=== PATIENT | female | born 1970 | race American Indian/Alaskan Native ===

== ENCOUNTER 2019-06-28 17:49 | Inpatient (IN) ==
[2019-06-28] MEDS ORDERED: IOPAMIDOL 100 ML BOTTLE IV ONE (17:50)
--- NOTE | 2019-06-28 18:02 | Emergency Department Note ---
Skin/Abscess/FB HPI - General Chief complaint: Skin/Abscess/Foreign Body Stated complaint: L foot infection. Time Seen by Provider: 06/28/19 18:01 Source: patient Mode of arrival: ambulatory Limitations: no limitations - History of Present Illness HPI Narrative: T9-year-old female of origin, history of type 2 diabetes mellitus not on insulin and not taking her metformin over the last couple weeks, history of a left great toe amputation related to infection approximately 1 year ago at [facility], apparently developed increasing pain and swelling of the whole of the dorsum of the left foot over the last 3 weeks associated w ith increased pain. Patient scared of going back to hospital so apparently did not seek help until tonight. She has had no focal neurologic deficits high fever chills chest pain shortness of breath abdominal pain or GI symptoms. She is noted some drainage now over the left fourth toe. Is been no history of recent trauma. She came to the emergency department via private vehicle for evaluation. - Related Data Allergies Allergy/AdvReac Type Severity Reaction Status Date / Time No Known Drug Allergies Allergy Verified 06/28/19 17:50 Review of Systems All systems ED: reviewed and negative except as stated. Constitutional: Reports: as per HPI Past Medical History - Past Medical History [facility] Narrative: We have no records of her here. There is no documented history of coronary disease COPD or cancer. - Social History smoking status: Current every day smoker Physical Exam Tearful uncomfortable adult female complaining bitterly of left foot pain. GCS of 15. General physical examinations unremarkable. The main physical finding is erythema without necrosis over the whole the dorsum of the left foot with swelling and severe tenderness and some drainage over the left fourth toe dorsal dorsal aspect. The swelling and erythema does not extend above the ankle. Basic neurovascular examination is still intact. Limitations: no limitations General appearance: alert Head: normocephalic Eye: Present: normal appearance, PERRL, EOMI ENT: Present: normal exam Neck: Present: normal inspection Chest: Present: normal inspection Respiratory: Present: normal lung sounds bilaterally Cardiovascular: Present: regular rate, normal rhythm Abdominal: Present: soft, normal bowel sounds. Absent: distention, tenderness, guarding, rebound Rectal: Present: deferred Extremities: Present: full ROM, tenderness, other (Per earlier portion of the note). Absent: normal inspection, normal capillary refill, pedal edema Neurological: Present: alert, oriented X3 Psychiatric: Present: anxious Skin: Present: warm, dry (Area of the cellulitis of the left foot is warm to hot.) Course Vital Signs Temperature 99.5 F H 06/28/19 17:50 Pulse Rate 123 H 06/28/19 17:50 Respiratory Rate 20 06/28/19 17:50 Pulse Oximetry (%) 98 06/28/19 17:50 Temperature 99.5 F H 06/28/19 17:50 Pulse Rate 102 H 06/28/19 20:46 Respiratory Rate 20 06/28/19 17:50 Blood Pressure 151/99 06/28/19 20:46 Pulse Oximetry (%) 100 06/28/19 20:46 Skin/Abscess/Foreign Body - MDM Narrative Medical decision making narrative: Likely a severe left foot cellulitis. Patient is given pain medication hypersaline 4.5 g with 1 g of vancomycin IV. Clearly for admission and observation. 9 PM: Patient feeling better after initial fluids and above antibiotic. She does tell me that indeed she had some minor symptoms of urinary tract infection over the last week but clearly that was in her priority. She is in much less pain after administration of the Dilaudid 1 mg IV. She tells me she would rather be admitted to [facility] if possible as opposed to [facility] where she had had her amputation. We will discuss her admission with hospitalist Dr. Lainez. At some point imaging, best a CT scan will be appropriate of her leg but I do not think it is an emergent study at this time.There is no live most likely the cellulitis sta rted from the ulcer at the dorsum of her left fourth toe. [place] this patient with Dr. Baker who agreed to assume care in the interim and arrange for hospitalization admission. - Lab Data Lab results reviewed: Yes I reviewed the patient's lab results. Lab results narrative: Labs are fairly benign. There is no leukocytosis hemoglobin is adequate electrolytes are normal bicarbonate is borderline low at 18 and lactate is normal. Urinalysis does unexpectedly show possible UTI however patient's antibiotic therapy should cover this possibie There is no lab criteria consistent with DKA. She is spilling a bit of glucose in the urine and her blood sugar is high at 370 Result diagrams: 06/28/19 18:17 06/28/19 18:17 Lab Results 06/28/19 06/28/19 06/28/19 Range/Units 18:17 18:17 18:17 WBC 9.6 (4.5-11.0) K/mcL RBC 4.52 (4.00-5.20) M/mcL Hgb 13.4 (12.0-15.0) g/dL Hct 39.9 (36.0-48.0) % MCV 88.3 (80.0-100.0) fL MCH 29.6 (26.0-34.0) pg MCHC 33.5 (31.0-36.0) g/dL RDW 12.3 (11.5-14.5) % Plt Count 523 H (140-440) K/mcL MPV 7.0 L (7.4-10.4) fL Total Counted 100 Seg Neutrophils % 67 (38-78) % Band Neutrophils % 4 (0-10) % Lymphocytes % 25 (15-49) % Monocytes % (Manual) 3 (1-12) % Eosinophils % (Manual) 1 (0-7) % Platelet Estimate Increased (NORMAL) RBC Morphology Normal (NORMAL) VBG Lactic Acid TNP Sodium 130 L (133-145) mmol/L Potassium 3.8 (3.3-5.1) mmol/L Chloride 92 L (96-108) mmol/L Carbon Dioxide 20 L (22-30) mmol/L Anion Gap 18.0 H (8-16) BUN 6 (6-20) mg/dl Creatinine 0.5 L (0.6-1.1) mg/dl GFR Calculation 114 Glucose 370 H (70-105) mg/dL Calcium 9.2 (8.6-10.4) mg/dl Total Bilirubin 0.5 (0.0-1.0) mg/dL AST 11 (0-37) U/l ALT 11 (0-40) U/l Alkaline Phosphatase 112 (39-117) U/L Total Protein 8.5 H (5.9-8.4) gm/dL Albumin 3.9 (3.2-5.2) gm/dL Globulin 4.6 H (2.2-3.7) gm/dL Albumin/Globulin Ratio 0.8 L (1.0-2.3) Urine Color Urine Appearance Urine pH (5.0-9.0) Ur Specific [place] (1.000-1.035) Urine Protein (NEG) mg/dL Urine Glucose (UA) (NEG) mg/dL Urine Ketones (NEG) mg/dL Urine Occult Blood (<0.03) mg/dL Urine Nitrate (NEG) Urine Bilirubin (NEG) mg/dL Urine Urobilinogen (NEG) mg/dL Ur Leukocyte Esterase (NEG) /uL Urine RBC (0-1) /hpf Urine WBC (0-4) /hpf Ur Squamous Epith Cells (0-4) /hpf Urine Bacteria (0) /hpf Hyaline Casts (0-2) /lpf Urine Mucus (0) /hpf Ur Culture Indicated? 06/28/19 06/28/19 Range/Units 19:14 19:28 WBC (4.5-11.0) K/mcL RBC (4.00-5.20) M/mcL Hgb (12.0-15.0) g/dL Hct (36.0-48.0) % MCV (80.0-100.0) fL MCH (26.0-34.0) pg MCHC (31.0-36.0) g/dL RDW (11.5-14.5) % Plt Count (140-440) K/mcL MPV (7.4-10.4) fL Total Counted Seg Neutrophils % (38-78) % Band Neutrophils % (0-10) % Lymphocytes % (15-49) % Monocytes % (Manual) (1-12) % Eosinophils % (Manual) (0-7) % Platelet Estimate (NORMAL) RBC Morphology (NORMAL) VBG Lactic Acid 1.3 Sodium (133-145) mmol/L Potassium (3.3-5.1) mmol/L Chloride (96-108) mmol/L Carbon Dioxide (22-30) mmol/L Anion Gap (8-16) BUN (6-20) mg/dl Creatinine (0.6-1.1) mg/dl GFR Calculation Glucose (70-105) mg/dL Calcium (8.6-10.4) mg/dl Total Bilirubin (0.0-1.0) mg/dL AST (0-37) U/l ALT (0-40) U/l Alkaline Phosphatase (39-117) U/L Total Protein (5.9-8.4) gm/dL Albumin (3.2-5.2) gm/dL Globulin (2.2-3.7) gm/dL Albumin/Globulin Ratio (1.0-2.3) Urine Color Yellow Urine Appearance Cloudy Urine pH 6.0 (5.0-9.0) Ur Specific [place] 1.021 (1.000-1.035) Urine Protein Neg (NEG) mg/dL Urine Glucose (UA) >=500 A (NEG) mg/dL Urine Ketones 5/tr A (NEG) mg/dL Urine Occult Blood 0.03 A (<0.03) mg/dL Urine Nitrate Pos A (NEG) Urine Bilirubin Neg (NEG) mg/dL Urine Urobilinogen Neg (NEG) mg/dL Ur Leukocyte Esterase 250 A (NEG) /uL Urine RBC 6 H (0-1) /hpf Urine WBC 52 H (0-4) /hpf Ur Squamous Epith Cells 45 H (0-4) /hpf Urine Bacteria Mod A (0) /hpf Hyaline Casts 12 H (0-2) /lpf Urine Mucus Mod (0) /hpf Ur Culture Indicated? No Disposition Pt seen by SENIOR DATABASE ENGINEER/PA only: No Disposition: Still a Patient Condition: Good Referrals: Glen Parr ARNP [Primary Care Provider] -
[2019-06-28] MEDS ORDERED: PIPERACILLIN SODIUM/TAZOBACTAM 4.5 GM in DEXTROSE 5% IN WATER 50 ML IV ONE (18:10)
[2019-06-28] MEDS ORDERED: VANCOMYCIN 1,000 MG in 0.9 % SODIUM CHLORIDE 250 ML IV ONE (18:11)
[2019-06-28] MEDS ORDERED: HYDROmorphone 2 MG/ML VIAL IV SCH (18:45)
[2019-06-28 19:06] LABS: Hematocrit 39.9 % (36.0-48.0); Hemoglobin 13.4 g/dL (12.0-15.0); Mean Cell Volume 88.3 fL (80.0-100.0); Mean Corpuscular HGB Conc 33.5 g/dL (31.0-36.0); Platelet Count 523 K/mcL (140-440); RBC 4.52 M/mcL (4.00-5.20); Red Cell Distribution Width 12.3 % (11.5-14.5); WBC 9.6 K/mcL (4.5-11.0)
[2019-06-28 19:29] LABS: ALT/SGPT 11 U/l (0-40); AST/SGOT 11 U/l (0-37); Albumin 3.9 gm/dL (3.2-5.2); Albumin/Globulin Ratio 0.8 (1.0-2.3); Alkaline Phosphatase 112 U/L (39-117); Bilirubin,Total 0.5 mg/dL (0.0-1.0); Blood Urea Nitrogen 6 mg/dl (6-20); Calcium 9.2 mg/dl (8.6-10.4); Carbon Dioxide 20 mmol/L (22-30); Globulin 4.6 gm/dL (2.2-3.7); Glomerular Filtration Rate 114; Glucose 370 mg/dL (70-105)
[2019-06-28 19:34] LABS: Chloride 92 mmol/L (96-108)
[2019-06-28 19:50] LABS: Band Neutrophils % 4 % (0-10); Eosinophils % (Manual) 1 % (0-7); Lymphocytes % 25 % (15-49); Monocytes % (Manual) 3 % (1-12); Platelet Estimate INCREASED (NORMAL); RBC Morphology NORMAL (NORMAL); Segmented Neutrophils % 67 % (38-78)
[2019-06-28 20:03] LABS: Appearance,Urine CLOUDY; Bacteria,Urine MOD /hpf (0); Bilirubin,Urine NEG (NEG); Color,Urine YELLOW; Culture Indicated,Urine NO; Glucose,Urine (UA) >=500 mg/dL (NEG); Ketones,Urine 5/TR mg/dL (NEG); Leukocyte Esterase,Urine 250 /uL (NEG); Mucus,Urine MOD /hpf (0); Nitrate,Urine POS (NEG); Protein,Urine NEG (NEG); Specific Gravity,Urine 1.021 (1.000-1.035); Urine Blood 0.03 mg/dL (<0.03); Urine Hyaline Cast 12 /lpf (0-2); Urine RBC 6 /hpf (0-1); Urine Squamous Epithelial Cell 45 /hpf (0-4); Urine WBC 52 /hpf (0-4); Urobilinogen,Urine NEG (NEG)
[2019-06-28] MEDS ORDERED: INSULIN REGULAR, HUMAN 1 UNIT/0.01 ML UNIT IV ONE (21:24)
--- NOTE | 2019-06-28 21:27 | Emergency Department Note ---
General Adult HPI - General Chief complaint: Skin/Abscess/Foreign Body Stated complaint: L foot infection. Time Seen by Provider: 06/28/19 18:01 Source: patient Mode of arrival: ambulatory Limitations: no limitations - History of Present Illness HPI Narrative: 49-year-old female with a history of fourth left toe infection that is getting worse. Patient is checked out to me by Dr. Barragan at shift change. I reviewed his note - Related Data Allergies Allergy/AdvReac Type Severity Reaction Status Date / Time No Known Drug Allergies Allergy Verified 06/28/19 17:50 Review of Systems Constitutional: Reports: as per HPI Past Medical History - Social History smoking status: Current every day smoker Physical Exam Left foot is erythematous over the entire forefoot and she is draining pus from several wounds at the fourth digit. This digit is deformed and very edematous Limitations: no limitations General appearance: alert Course Vital Signs Temperature 99.5 F H 06/28/19 17:50 Pulse Rate 123 H 06/28/19 17:50 Respiratory Rate 20 06/28/19 17:50 Pulse Oximetry (%) 98 06/28/19 17:50 Temperature 99.5 F H 06/28/19 17:50 Pulse Rate 100 H 06/28/19 22:30 Respiratory Rate 20 06/28/19 17:50 Blood Pressure 127/75 06/28/19 22:30 Pulse Oximetry (%) 100 06/28/19 22:30 Medical Decision Making - Lab Data Lab results reviewed: Yes I reviewed the patient's lab results. Result diagrams: 06/28/19 18:17 06/28/19 18:17 Lab Results 06/28/19 06/28/19 06/28/19 Range/Units 18:17 18:17 18:17 WBC 9.6 (4.5-11.0) K/mcL RBC 4.52 (4.00-5.20) M/mcL Hgb 13.4 (12.0-15.0) g/dL Hct 39.9 (36.0-48.0) % MCV 88.3 (80.0-100.0) fL MCH 29.6 (26.0-34.0) pg MCHC 33.5 (31.0-36.0) g/dL RDW 12.3 (11.5-14.5) % Plt Count 523 H (140-440) K/mcL MPV 7.0 L (7.4-10.4) fL Total Counted 100 Seg Neutrophils % 67 (38-78) % Band Neutrophils % 4 (0-10) % Lymphocytes % 25 (15-49) % Monocytes % (Manual) 3 (1-12) % Eosinophils % (Manual) 1 (0-7) % Platelet Estimate Increased (NORMAL) RBC Morphology Normal (NORMAL) VBG Lactic Acid TNP Sodium 130 L (133-145) mmol/L Potassium 3.8 (3.3-5.1) mmol/L Chloride 92 L (96-108) mmol/L Carbon Dioxide 20 L (22-30) mmol/L Anion Gap 18.0 H (8-16) BUN 6 (6-20) mg/dl Creatinine 0.5 L (0.6-1.1) mg/dl GFR Calculation 114 Glucose 370 H (70-105) mg/dL Calcium 9.2 (8.6-10.4) mg/dl Total Bilirubin 0.5 (0.0-1.0) mg/dL AST 11 (0-37) U/l ALT 11 (0-40) U/l Alkaline Phosphatase 112 (39-117) U/L Total Protein 8.5 H (5.9-8.4) gm/dL Albumin 3.9 (3.2-5.2) gm/dL Globulin 4.6 H (2.2-3.7) gm/dL Albumin/Globulin Ratio 0.8 L (1.0-2.3) Procalcitonin (<0.10) ng/mL Urine Color Urine Appearance Urine pH (5.0-9.0) Ur Specific [place] (1.000-1.035) Urine Protein (NEG) mg/dL Urine Glucose (UA) (NEG) mg/dL Urine Ketones (NEG) mg/dL Urine Occult Blood (<0.03) mg/dL Urine Nitrate (NEG) Urine Bilirubin (NEG) mg/dL Urine Urobilinogen (NEG) mg/dL Ur Leukocyte Esterase (NEG) /uL Urine RBC (0-1) /hpf Urine WBC (0-4) /hpf Ur Squamous Epith Cells (0-4) /hpf Urine Bacteria (0) /hpf Hyaline Casts (0-2) /lpf Urine Mucus (0) /hpf Ur Culture Indicated? 06/28/19 06/28/19 06/28/19 Range/Units 18:17 19:14 19:28 WBC (4.5-11.0) K/mcL RBC (4.00-5.20) M/mcL Hgb (12.0-15.0) g/dL Hct (36.0-48.0) % MCV (80.0-100.0) fL MCH (26.0-34.0) pg MCHC (31.0-36.0) g/dL RDW (11.5-14.5) % Plt Count (140-440) K/mcL MPV (7.4-10.4) fL Total Counted Seg Neutrophils % (38-78) % Band Neutrophils % (0-10) % Lymphocytes % (15-49) % Monocytes % (Manual) (1-12) % Eosinophils % (Manual) (0-7) % Platelet Estimate (NORMAL) RBC Morphology (NORMAL) VBG Lactic Acid 1.3 Sodium (133-145) mmol/L Potassium (3.3-5.1) mmol/L Chloride (96-108) mmol/L Carbon Dioxide (22-30) mmol/L Anion Gap (8-16) BUN (6-20) mg/dl Creatinine (0.6-1.1) mg/dl GFR Calculation Glucose (70-105) mg/dL Calcium (8.6-10.4) mg/dl Total Bilirubin (0.0-1.0) mg/dL AST (0-37) U/l ALT (0-40) U/l Alkaline Phosphatase (39-117) U/L Total Protein (5.9-8.4) gm/dL Albumin (3.2-5.2) gm/dL Globulin (2.2-3.7) gm/dL Albumin/Globulin Ratio (1.0-2.3) Procalcitonin < 0.05 (<0.10) ng/mL Urine Color Yellow Urine Appearance Cloudy Urine pH 6.0 (5.0-9.0) Ur Specific [place] 1.021 (1.000-1.035) Urine Protein Neg (NEG) mg/dL Urine Glucose (UA) >=500 A (NEG) mg/dL Urine Ketones 5/tr A (NEG) mg/dL Urine Occult Blood 0.03 A (<0.03) mg/dL Urine Nitrate Pos A (NEG) Urine Bilirubin Neg (NEG) mg/dL Urine Urobilinogen Neg (NEG) mg/dL Ur Leukocyte Esterase 250 A (NEG) /uL Urine RBC 6 H (0-1) /hpf Urine WBC 52 H (0-4) /hpf Ur Squamous Epith Cells 45 H (0-4) /hpf Urine Bacteria Mod A (0) /hpf Hyaline Casts 12 H (0-2) /lpf Urine Mucus Mod (0) /hpf Ur Culture Indicated? No - Radiology Data Radiology results reviewed: Yes I reviewed the patient's radiology results. CT scan of the foot on the left shows likely septic arthritis of the left fourth metatarsal phalangeal joint with flanking osteomyelitis possible pathologic fracture and an abscess-see [place] read Disposition Pt seen by ANALYTICAL DATA MINER/PA only: No Clinical Impression: Septic arthritis of interphalangeal joint of toe of left foot Abscess of skin or subcutaneous tissue Qualifiers: Site of cutaneous abscess: extremity Site of cutaneous abscess of extremity: foot Laterality: left Qualified Code(s): L02.612 - Cutaneous abscess of left foot Osteomyelitis Qualifiers: Osteomyelitis type: unspecified type Osteomyelitis location: foot Laterality: left Qualified Code(s): M86.9 - Osteomyelitis, unspecified Uncontrolled diabetes mellitus Qualifiers: Diabetes mellitus type: type 2 Glycemic state: with hyperglycemia Qualified Code(s): E11.65 - Type 2 diabetes mellitus with hyperglycemia Summary: I added some further laboratory and CT scan of the left foot. Start IV insulin 10 units. I initially tried to discuss the case with Dr. Agustin Last, retail service representative but he was not available. I discussed findings of the CT scan with Dr. Glaser, orthopedist song writer. He agreed to see the patient in the morning-we will continue antibiotics and admit to the hospitalist. I discussed the case with the hospitalist, Dr. Lainez who agreed to accept the patient Disposition: Xfer As Inpt ([facility]) Condition: Fair Referrals: Glen Parr ARNP [Primary Care Provider] -
[2019-06-28] MEDS ORDERED: 0.9 % SODIUM CHLORIDE 1,000 ML IV ONE (23:08)
--- NOTE | 2019-06-28 23:20 | Internal Med History&Physical ---
Medical - H&P: [facility] Patient information: Note initiated : 06/28/19 at 11:20 pm Service Date, if different from initiated Date: [] Patient: Enma Leonard 49 y/o F admitted on for Left 4th digit infection. Chief Complaint: Left foot pain, swelling, erythema History of present illness: Ms. Leonard is a 49 year old F with history of type 2 diabetes and neuropathy, history of left great toe amputation for osteomyelitis who presents to the emergency department with worsening swelling, erythema and pain of her left f oot. Patient states that about 3 weeks ago she developed a blister on the lateral aspect of her fourth left toe. It broke, she rapidly developed evidence of infection, erythema, tenderness. She avoided seeking medical attention, instead becoming more sedentary because of inability to ambulate. Pain continued to increase over the last few weeks. Today she bumped her foot on an object with worsening pain. That combined with the insistence of her sister led her to seek care in the emergency department. Patient has had low-grade fever into the 99 degree range. She has occasional chills. She has had sporadic nausea and vomiting since her foot became red and painful. Glucoses have generally been running in the 1 20-220 range, though were over 300 at presentation today. She has pain in the foot as noted. There is erythema onto the dorsum of the foot along with edema up to the ankle. In the emergency department, she had obviously red and edematous foot with open wound on the plantar aspect of the fourth toe on the left. White count was not elevated, lactate was normal and she had mild electrolyte abnormalities. She was cultured, received antibiotics, subsequently had CT of the foot which shows worrisome changes for osteomyelitis along with an abscess and possible fracture. Orthopedics has been contacted and will see the patient in the morning. She is being admitted for further treatment of diabetic foot wound with cellulitis and abscess. Medications: Metformin and gabapentin, unknown doses All systems: reviewed and no additional remarkable complaints except as stated Medical - H&P: PMH Medical history: Type 2 diabetes mellitus Diabetic neuropathy Osteomyelitis of left great toe, status post amputation 1 year ago Surgical history: Amputation of left great toe, late 2018 at [facility] Pertinent family history: Significant history of diabetes in multiple family members. Social history: Patient smokes 1 to 2 cigarettes a month. She does not drink alcohol. She uses marijuana. Medical - H&P: Meds Allergies Allergy/AdvReac Type Severity Reaction Status Date / Time No Known Drug Allergies Allergy Verified 06/28/19 17:50 Medical - H&P: Exam - Constitutional Vitals: Temp Pulse Resp BP Pulse Ox 99.5 F H 100 H 20 127/75 100 06/28/19 17:50 06/28/19 22:30 06/28/19 17:50 06/28/19 22:30 06/28/19 22:30 Exam: GENERAL: Alert, oriented, distressed about the status of her foot. HEENT: Atraumatic. Pupils equal, conjunctiva clear, no scleral icterus. Hearing grossly intact. Oropharynx with moist mucous membranes. NECK: Supple without meningismus RESPIRATORY: Breath sounds clear bilaterally without wheezes or rhonchi. Respiratory effort is unlabored. CARDIOVASCULAR: Regular rate and rhythm, no murmur gallop or rub. No peripheral edema. Carotid pulses 2+ without bruit. GI: Abdomen soft, nontender, no guarding or rebound. Bowel sounds are present. MUSCULOSKELETAL: Left foot is with significant edema from the forefoot to the ankle. There is dusky erythema over the dorsum of the foot. The left fourth toe has worsened swelling, some open drainage on top, approximately 3 cm transverse opening with exposed fat at the base of the fourth toe on the dorsum. Dorsalis pedis pulse is 2+. SKIN: Abrasion along the left eyebrow margin, otherwise intact, warm, dry. NEUROLOGIC: Cranial nerves II through XII grossly intact. Muscle mass normal. Strength appears intact in the upper and lower extremities. Sensation intact to light touch bilaterally. PSYCHIATRIC: Alert, oriented x3, mood and affect congruent with situation. Medical - H&P: Reslt - Labs CBC & Chem 7: 06/28/19 18:17 06/28/19 18:17 Labs: Short CBC 06/28/19 Range/Units 18:17 WBC 9.6 (4.5-11.0) K/mcL Hgb 13.4 (12.0-15.0) g/dL Hct 39.9 (36.0-48.0) % Plt Count 523 H (140-440) K/mcL BMP 06/28/19 18:17 Sodium 130 L Potassium 3.8 Chloride 92 L Carbon Dioxide 20 L BUN 6 Creatinine 0.5 L Glucose 370 H Calcium 9.2 Liver Function 06/28/19 Range/Units 18:17 Total Bilirubin 0.5 (0.0-1.0) mg/dL AST 11 (0-37) U/l ALT 11 (0-40) U/l Alkaline Phosphatase 112 (39-117) U/L Albumin 3.9 (3.2-5.2) gm/dL Urine 06/28/19 Range/Units 19:14 Urine Color Yellow Urine Appearance Cloudy Urine pH 6.0 (5.0-9.0) Ur Specific [place] 1.021 (1.000-1.035) Urine Protein Neg (NEG) mg/dL Urine Glucose (UA) >=500 A (NEG) mg/dL - Impressions CT of the left foot, images reviewed Impression: Findings favored for septic arthritis of left fourth MTP joint with flanking osteomyelitis, probable pathologic fracture and adjacent linear abscess. Medical - H&P: A/P - Narrative A/P Narrative: 49-year-old with type 2 diabetes presenting with left foot infection. Diabetic foot infection with cellulitis and ulcer. Apparently started as a blister on the lateral aspect of the left fourth toe. Now with evidence of bone infection and abscess. Surrounding erythema and edema consistent with cellulitis. Has been ongoing for about 3 weeks. Certainly at risk for gram- positive as well as gram-negative infection with her diabetes. Likely will require surgical debridement, possible amputation. Good palpable dorsalis pedis pulse on that foot. Inpatient admission Continue vancomycin and Zosyn Follow-up cultures obtained in the ED Orthopedic consultation, called by the ED N.p.o. in anticipation of surgery tomorrow SCDs, holding enoxaparin until after surgery Type 2 diabetes. Takes metformin and gabapentin at home. Check hemoglobin A1c Sliding scale insulin N.p.o. for now, as controlled carbohydrate diet when taking oral CODE STATUS: Full code
[2019-06-28] MEDS ORDERED: HYDROmorphone 2 MG/ML VIAL IV PRN (23:43)
[2019-06-29] MEDS ORDERED: DEXTROSE 50% 50 ML VIAL IV PRN (00:48)
[2019-06-29] MEDS ORDERED: DEXTROSE 31 GM ORAL.SUSP PO PRN (00:48)
[2019-06-29] MEDS ORDERED: 0.9 % SODIUM CHLORIDE 1,000 ML IV SCH (00:48)
[2019-06-29] MEDS ORDERED: VANCOMYCIN PER PHARMACY IV ONE (00:48)
[2019-06-29] MEDS ORDERED: ONDANSETRON 4 MG/2 ML VIAL IV PRN (00:48)
[2019-06-29] MEDS ORDERED: ACETAMINOPHEN 325 MG TABLET PO PRN (00:48)
[2019-06-29 01:25] LABS: Hemoglobin A1C 10.7 % HGB (4.0-6.0)
[2019-06-29] MEDS: PIPERACILLIN SODIUM/TAZOBACTAM 3.375 GM in DEXTROSE 5% IN WATER 50 ML IV SCH ×3 (01:28→11:17)
[2019-06-29] MEDS ORDERED: HYDROcodone/APAP 5/325MG TABLET PO ONE (01:42)
[2019-06-29] MEDS: HYDROcodone/APAP 5/325MG TABLET PO PRN ×5 (01:44→23:58)
[2019-06-29] MEDS: 0.9 % SODIUM CHLORIDE 10 ML SYRINGE IV SCH ×3 (04:05→20:21)
--- NOTE | 2019-06-29 04:13 | Cat Scan Report ---
CLINICAL INFORMATION: left 4th toe infection COMPARISON: None. TECHNIQUE: 0.625 helical slices were obtained through the left foot and ankle. Following reconstruction, 2.5 axial, sagittal and coronal reformatted images were processed and reviewed in bone and soft tissue windows. FINDINGS: First ray amputation at the MTP level shows typical postoperative appearance. In the fourth ray, there is osteolytic destruction of the metatarsal head and neck and the most of the proximal and middle phalanges compatible with osteomyelitis. There is associated septic arthritis in the fourth MTP and first PIP There is a 4 x 1 cm abscess in the adjacent deep plantar soft tissues. 2-3 smaller abscesses less than 1 cm more proximally in the deep plantar soft tissues as well. IMPRESSION: 1. Severe osteomyelitis destruction of the fourth metatarsal head and neck and most of the fourth proximal and middle phalanges with septic arthritis the fourth MTP and PIP. There is a 4 x 1 cm abscess in the adjacent deep plantar soft tissues. There are 2-3 smaller (1 cm) abscesses or proximally in the plantar soft tissues. 2. First ray amputation at the MTP level - typical postoperative appearance Interpreted and Authenticated by: Kings Guerra 06/29/19
[2019-06-29] MEDS ORDERED: LACTATED RINGERS 1,000 ML IV ONE ×2 (05:49→12:15)
[2019-06-29] MEDS ORDERED: VANCOMYCIN PER PHARMACY IV SCH (06:15)
[2019-06-29 06:28] LABS: Basophils # (Auto) 0 K/mcL (0.0-0.3); Basophils % (Auto) 0.3 % (0.0-2.0); Eosinophils # (Auto) 0.1 K/mcL (0.0-0.7); Eosinophils % (Auto) 1.6 % (0.0-7.0); Granulocytes % (Auto) 53.8 % (38.0-78.0); Hemoglobin 11.6 g/dL (12.0-15.0); Lymphocytes # (Auto) 2.9 K/mcL (1.5-4.8); Lymphocytes % (Auto) 35.7 % (15.5-49.0); Mean Cell Volume 90.2 fL (80.0-100.0); Mean Corpuscular HGB Conc 33.1 g/dL (31.0-36.0); Mean Platelet Volume 6.9 fL (7.4-10.4); Monocytes # (Auto) 0.7 K/mcL (0.1-0.9); Monocytes % (Auto) 8.6 % (1.0-12.0); Platelet Count 420 K/mcL (140-440); RBC 3.88 M/mcL (4.00-5.20); Red Cell Distribution Width 12.3 % (11.5-14.5); WBC 8.2 K/mcL (4.5-11.0)
[2019-06-29] MEDS: 0.9 % SODIUM CHLORIDE 1,000 ML IV SCH ×3 (06:59→18:47)
[2019-06-29 07:08] LABS: ALT/SGPT 8 U/l (0-40); AST/SGOT 18 U/l (0-37); Albumin/Globulin Ratio 0.8 (1.0-2.3); Alkaline Phosphatase 81 U/L (39-117); Bilirubin,Direct < 0.2 mg/dL (0.0-0.3); Bilirubin,Total 0.4 mg/dL (0.0-1.0); Blood Urea Nitrogen 10 mg/dl (6-20); Calcium 8.6 mg/dl (8.6-10.4); Carbon Dioxide 23 mmol/L (22-30); Chloride 99 mmol/L (96-108); Globulin 3.8 gm/dL (2.2-3.7); Glomerular Filtration Rate 114; Glucose 230 mg/dL (70-105); Lactate Dehydrogenase 279 U/L (94-250); Phosphorous 4.3 mg/dL (2.7-4.5); Triglycerides 131 mg/dl (<150); Uric Acid 2.5 mg/dL (2.5-8.0)
[2019-06-29] MEDS: HYDROmorphone 2 MG/ML VIAL IV PRN ×3 (07:40→18:47)
[2019-06-29] MEDS: INSULIN LISPRO 1 UNIT/0.01 ML UNIT SQ SCH ×4 (07:41→19:18)
[2019-06-29] MEDS: VANCOMYCIN 1,500 MG in 0.9 % SODIUM CHLORIDE 500 ML IV SCH ×2 (08:58→20:20)
[2019-06-29] MEDS: DOCUSATE SODIUM 100 MG CAPSULE PO SCH ×2 (09:06→19:29)
--- NOTE | 2019-06-29 12:06 | History and Physical Report ---
DATE OF ADMISSION: 06/29/2019 CHIEF COMPLAINT: Left foot pain with swelling and erythema. HISTORY OF PRESENT ILLNESS: The patient is a 49-year-old female who presented to the emergency department last evening complaining of left foot pain, swelling and edema. She does report a history of left great toe amputation, diabetes mellitus type 2. She states her symptoms began approximately 1 month ago. She has been noticing increased swelling, erythema and drainage since. She denies any systemic symptoms such as a fever or chills. She has no other specific complaints today. PAST MEDICAL HISTORY: Significant for type 2 diabetes mellitus, diabetic neuropathy and osteomyelitis of the left great toe. PAST SURGICAL HISTORY: Amputation of left great toe in late 2018. FAMILY HISTORY: She does have significant history of diabetes with multiple family members. SOCIAL HISTORY: The patient admits to smoking one to two cigarettes per month, as well as marijuana. She denies any alcohol use or any other recreational drug use, though she does have a history of using methamphetamine. MEDICATIONS: None. ALLERGIES: She has no known drug allergies. PHYSICAL EXAMINATION: GENERAL: The patient is alert and oriented x3. She is somewhat distressed and emotional regarding her left foot. HEENT: Atraumatic. Pupils are equal, round, and reactive to light and accommodation. ENT is otherwise unremarkable. NECK: Supple, without lymphadenopathy. RESPIRATORY: Lungs are clear to auscultation bilaterally without any wheezes, rhonchi or rales. HEART: Regular rate and rhythm without murmur. ABDOMEN: Soft, nontender, nondistended. Bowel sounds are present in all 4 quadrants. MUSCULOSKELETAL: On the left foot there does appear to be significant edema diffusely, mainly over the dorsum of the foot and ankle as well as erythema. There is no significant in the fourth digit with some purulent drainage. The erythema does extend proximally to the base of her ankle. The dorsum of her fourth digit is actively draining and she does have approximately a 3 cm oblique wound over the dorsal aspect of the fourth digit. Dorsal pedis pulse is 2+, passive and active range of motion of the fourth toe is limited due to swelling and tenderness. There is diffuse tenderness to palpation throughout the dorsum of the fourth toe. LABORATORY DATA: She does not have any significant white blood cell count at this time. Hemoglobin is 13.4, hematocrit 39.94. White blood cell count is 9.6. BMP is otherwise fairly normal. UA normal. IMAGING: CT of the left foot reveals severe osteomyelitis of the fourth metatarsal head and neck as well as most of the fourth proximal and middle phalanx with septic arthritis of the fourth MTP and PIP joints. There does appear to be an abscess of the adjacent deep plantar soft tissues and proximal plantar soft tissues. There are no other acute abnormalities or fractures appreciated. IMPRESSION: A left fourth toe diabetic foot ulcer/wound with osteomyelitis at the fourth digit. PLAN: After assessing the patient and examining the diabetic foot infection and osteomyelitis of the fourth digit, I do think it is best to proceed with amputation of the left fourth toe with possible transmetatarsal amputation which will be determined by Dr. Gallegos. I did consult Dr. Gallegos and he agrees with this plan. I discussed the risks, complications, and possible limitations of surgery and the patient would like to proceed with surgery. The patient will remain ____ and be managed by the hospitalist throughout her stay. We also will manage her diabetes. The patient agrees with this plan and her questions were addressed. RSBang:justice Job ID: [id number] Doc ID: [id number] Jason De Los Santos PA-C
--- NOTE | 2019-06-29 12:07 | Infectious Disease Consult ---
History of Present Illness Patient information: Note initiated : 06/29/19 at 12:00 pm Service Date, if different from initiated Date: [] Patient: Enma Leonard 49 y/o F admitted on 06/29/19 for Left 4th digit infection. Chief Complaint: [] Consult date: 06/29/19 Requesting Physician: Leanne Baldwin Reason for Consult: Osteomyelitis of left foot and local skin-soft tissue infection Chief complaint: my foot hurts History of present illness: 49-year-old lady with past medical history of type 2 diabetes with neuropathy and left great toe amputation for osteomyelitis [in 2018] is admitted with 3- week history of worsening swelling, redness, pain and pus drainage from the left foot. Patient reports that about 3 weeks ago she developed a blister probably from a tight fitting shoe. Initially it was a small but eventually broke and developed redness, swelling and pain. Initially the symptoms were in the for efoot but later on the spread to the rest of the foot and over last few days to lower two third of the leg. She didnot notice any fever, chills. Pt didnot seek medical attention for some reason, until now when she came to ER yesterday. Her blood sugars have been in 120-200s range. In the ED, her VS were notable for low grade temp of 99.5F, HR 102, BP 151/99, satting 98% on RA. WBC was 9.6, BS 370, lactate 1.3. Pt underwent CT of left foot, blood Cx, wound CX and was started on IV Vanc and IV Zosyn. CT left foot showed "Severe osteomyelitis destruction of the fourth metatarsal head and neck and most of the fourth proximal and middle phalanges with septic arthritis the fourth MTP and PIP. There is a 4 x 1 cm abscess in the adjacent deep plantar soft tissues. There are 2-3 smaller (1 cm) abscesses or proximally in the plantar soft tissues.A MRSA nasal PCR was also sent which came back positive. At time of visit, pt was slightly uncomfortable. Confirmed above Hx. Was reaful about the prospects of having another amputation. Denied any allergies. Review of Systems All systems PM: reviewed and no additional remarkable complaints except as stated Constitutional: as per HPI Past History Past medical history: Type 2 diabetes mellitus Diabetic neuropathy Osteomyelitis of left great toe, status post amputation 1 year ago Past surgical history: Amputation of left great toe, late 2018 at [facility] Past family history: lives in [place], [place] Past social history: smokes 1-2 cigarettes every few weeks, smokes marijuana daily has been IV drug user in past, with last use of inj meth about 6-7 mnths ago. Currently denies any Inj drug use Medications and Allergies Home Medications Medication Instructions Recorded Confirmed Type Gabapentin [Neurontin] 100 mg PO Q12 06/29/19 06/29/19 History metFORMIN HCL [Metformin HCl] 1 tab PO BID 06/29/19 06/29/19 History Allergies Allergy/AdvReac Type Severity Reaction Status Date / Time No Known Drug Allergies Allergy Verified 06/28/19 17:50 Physical Examination Vital signs: Temp Pulse Resp BP Pulse Ox 36.4 C 68 16 89/53 100 06/29/19 11:21 06/29/19 11:21 06/29/19 11:21 06/29/19 11:21 06/29/19 11:21 General appearance: appears uncomfortable Eyes pulmonary: nonicteric Auscultation: bilateral: clear Cardiovascular: other (s1 s2 normal, no m/r/g) Gastrointestinal: hypoactive bowel sounds, soft, non-tender Extremities: other (has swelling of left foot and lower leg. There is marked swelling of left foot 3rd and 4th toes,with spotaneous drainage of pus. Tenderness and warmth below left knee downwards. No black disoloration. has well healed Lt great toe amputation stump) Results - Laboratory Findings CBC and BMP: 06/29/19 04:49 06/29/19 04:49 Abnormal lab findings: Abnormal Labs 06/28/19 06/28/19 06/28/19 18:17 18:17 18:17 RBC Hgb Hct Plt Count 523 H MPV 7.0 L Sodium 130 L Chloride 92 L Carbon Dioxide 20 L Anion Gap 18.0 H Creatinine 0.5 L Glucose 370 H Hemoglobin A1c 10.7 H Lactate Dehydrogenase Total Protein 8.5 H Albumin Globulin 4.6 H Albumin/Globulin Ratio 0.8 L Urine Glucose (UA) Urine Ketones Urine Occult Blood Urine Nitrate Ur Leukocyte Esterase Urine RBC Urine WBC Ur Squamous Epith Cells Urine Bacteria Hyaline Casts 06/28/19 06/29/19 06/29/19 19:14 04:49 04:49 RBC 3.88 L Hgb 11.6 L Hct 35.0 L Plt Count MPV 6.9 L Sodium Chloride Carbon Dioxide Anion Gap Creatinine 0.5 L Glucose 230 H Hemoglobin A1c Lactate Dehydrogenase 279 H Total Protein Albumin 3.0 L Globulin 3.8 H Albumin/Globulin Ratio 0.8 L Urine Glucose (UA) >=500 A Urine Ketones 5/tr A Urine Occult Blood 0.03 A Urine Nitrate Pos A Ur Leukocyte Esterase 250 A Urine RBC 6 H Urine WBC 52 H Ur Squamous Epith Cells 45 H Urine Bacteria Mod A Hyaline Casts 12 H Microbiology: Microbiology 06/28/19 19:12 Foot - Left Gram Stain - Final 06/28/19 19:12 Foot - Left Wound Culture - Preliminary Staphylococcus aureus 06/29/19 01:15 Nose MRSA (PCR) - Final MRSA PCR positive Assessment and Plan - Narrative A/P Narrative: A: 1. Left forefoot osteomyelitis with localized skin-soft tissue infection and abscess formation: preliminary Cx growing Staph aureus with sensi pending - risk factors of uncontrolled DM2, prior Hx of osteomyelitis, Hx of IV meth use in past, MRSA colonization with minor trauma - no concerns for necrotizing fascitis 2. MRSA carrier Recommendations: - agree with surgical debridement today. Send deep tissue, bone samples for GS and C/S - Stop IV Zosyn - Continue IV Vanc per pharmacy. Check trough before the 4th dose (target 10-20) - Start IV Cefazolin 2 gm q8 hrs while awaiting whether Staph aureus is MSSA or MRSA - Start MRSA decolonization with: 2% mupirocin intranasally bid x 5 days and once daily 2% CHG wipes (per hospital protocol) all over body below neck x 5 days - aggressive blood sugar control (target <180 mg/dl) - anticipate at least few weeks of antibiotics post-operatively with ID follow up. will follow Levon Valles MD Infectious diseases
[2019-06-29] MEDS: ceFAZolin 1 GM VIAL IV SCH ×2 (14:00→22:25)
[2019-06-29] MEDS ORDERED: GLYCOPYRROLATE 0.2 MG/ML VIAL IV ONE (15:54)
[2019-06-29] MEDS ORDERED: PROPOFOL 200 MG/20 ML VIAL IV ONE (15:54)
[2019-06-29] MEDS ORDERED: ONDANSETRON 4 MG/2 ML VIAL ONE (15:54)
[2019-06-29] MEDS ORDERED: LIDOCAINE HCL/PF 100 MG/5 ML SYRINGE IV ONE (15:54)
[2019-06-29] MEDS ORDERED: KETAMINE 10 MG/ML ML ONE (15:54)
[2019-06-29] MEDS ORDERED: PHENYLEPHRINE 10 MG/ML VIAL ONE (15:54)
[2019-06-29] MEDS ORDERED: MIDAZOLAM 2 MG/2 ML VIAL ONE (15:54)
[2019-06-29] MEDS ORDERED: DEXAMETHASONE 10 MG/ML VIAL ONE (15:54)
[2019-06-29] MEDS ORDERED: HYDROmorphone 2 MG/ML VIAL IV PRN (16:37)
[2019-06-29] MEDS ORDERED: NALOXONE HCL 0.4 MG/ML VIAL IV PRN (16:37)
[2019-06-29] MEDS ORDERED: FLUMAZENIL 0.1 MG/ML ML IV PRN (16:37)
[2019-06-29] MEDS ORDERED: diphenhydrAMINE 50 MG/ML VIAL IV PRN (16:37)
[2019-06-29] MEDS ORDERED: MEPERIDINE 25 MG/ML SYRINGE IV PRN (16:37)
[2019-06-29] MEDS ORDERED: METOPROLOL TARTRATE 5 MG/5 ML VIAL IV PRN (16:37)
[2019-06-29] MEDS ORDERED: ACETAMINOPHEN 1,000 MG/100 ML BOTTLE IV ONE (16:37)
[2019-06-29] MEDS ORDERED: IPRATROPIUM/ALBUTEROL 3 ML AMPUL.NEB NEB PRN (16:37)
[2019-06-29] MEDS ORDERED: ePHEDrine 50 MG/ML AMPUL IV PRN (16:37)
[2019-06-29] MEDS ORDERED: ATROPINE SULFATE 0.4 MG/ML VIAL IV PRN (16:37)
[2019-06-29] MEDS ORDERED: METHOCARBAMOL 1,000 MG/10 ML VIAL IV PRN (16:37)
[2019-06-29] MEDS ORDERED: LACTATED RINGERS 1,000 ML IV SCH (16:45)
--- NOTE | 2019-06-29 17:35 | Brief Operative Note ---
Date of procedure: 06/29/19 Pre-op diagnosis: septic left forefoot Post-op diagnosis: same Procedure: l transmet amputation Grafts/Implants: No Anesthesia: RAMANDEEP Surgeon: Kalyan Gallegos Plumber Cub: Wicho Walden Estimated blood loss (cc): 100 Tourniquet Time (Minutes): 20 Specimens Removed/Pathology: none sent Condition: stable Disposition: PACU
[2019-06-29] MEDS: fentaNYL 100 MCG/2 ML VIAL IV PRN ×3 (17:50→18:20)
[2019-06-29] MEDS ORDERED: LORazepam 2 MG/ML VIAL IV ONE (17:58)
[2019-06-29] MEDS ORDERED: LORazepam 2 MG/ML VIAL ONE (17:59)
--- NOTE | 2019-06-29 18:16 | XRay Report ---
CLINICAL INFORMATION: postop COMPARISON: Left foot CT 06/28/2019 FINDINGS: Postsurgical amputation metatarsal base level are appreciated. Stumps appear unremarkable. Mild stump soft tissue swelling seen as expected. Joint spaces of the hindfoot and midfoot are normal. IMPRESSION: Amputation changes - metatarsal bases. Typical postoperative appearance Interpreted and Authenticated by: Kings Guerra 06/29/19
--- NOTE | 2019-06-29 19:13 | Internal Med Progress Note ---
Medical - PN: Subj Patient information: Note initiated : 06/29/19 at 7:10 pm Service Date, if different from initiated Date: [] Patient: Enma Leonard 49 y/o F admitted on 06/29/19 for Left 4th digit infection. Chief Complaint: Follow-up diabetic foot wound Interval history: 06/28 Ms. Leonard is a 49 year old F with history of type 2 diabetes and neuropathy, history of left great toe amputation for osteomyelitis who presents to the emergency department with worsening swelling, erythema and pain of her left radha t. Patient states that about 3 weeks ago she developed a blister on the lateral aspect of her fourth left toe. It broke, she rapidly developed evidence of infection, erythema, tenderness. She avoided seeking medical attention, instead becoming more sedentary because of inability to ambulate. Pain continued to increase over the last few weeks. Today she bumped her foot on an object with worsening pain. That combined with the insistence of her sister led her to seek care in the emergency department. Patient has had low-grade fever into the 99 degree range. She has occasional chills. She has had sporadic nausea and vomiting since her foot became red and painful. Glucoses have generally been running in the 1 20-220 range, though were over 300 at presentation today. She has pain in the foot as noted. There is erythema onto the dorsum of the foot along with edema up to the ankle. In the emergency department, she had obviously red and edematous foot with open wound on the plantar aspect of the fourth toe on the left. White count was not elevated, lactate was normal and she had mild electrolyte abnormalities. She was cultured, received antibiotics, subsequently had CT of the foot which shows worrisome changes for osteomyelitis along with an abscess and possible fracture. Orthopedics has been contacted and will see the patient in the morning. She is being admitted for further treatment of diabetic foot wound with cellulitis and abscess. 06/29 Seen postop after left TMA. She is groggy, complaining of some wound pain. Case discussed with Dr. Valles who has consulted. Wound cultures from the ED with heavy growth of staph aureus. Nasal screening positive for MRSA carriage. - Constitutional Vitals: Vital Signs Temp Pulse Resp BP Pulse Ox 97.2 F 78 10 L 117/64 99 06/29/19 18:15 06/29/19 18:15 06/29/19 18:32 06/29/19 18:15 06/29/19 18:32 Period Temp Pulse Resp BP Sys/Wang Pulse Ox Last 24 Hr 96.7 F-98.8 F 67-108 10-20 81-163/48-99 94-100 Intake and Output 06/29/19 06/29/19 06/29/19 05:59 13:59 21:59 Intake Total 50 1000 2340 Output Total 300 Balance 50 1000 2040 Weight 169 lb Intake & Output: Intake & Output 06/29/19 06/29/19 06/29/19 05:59 13:59 21:59 Intake Total 50 1000 2340 Output Total 300 Balance 50 1000 2040 Weight 169 lb Intake: IV 50 1000 2100 Sodium Chloride 0.9% 1,000 ml @ 1000 150 mls/hr IV .Q6H40M [facility] Rx#: [id number] Lactated Ringers 1,000 ml @ 2000 Wide Open IV BOLUS ONE Rx#: [id number] Zosyn 3.375 gm In Dextrose 5% 50 in Water 50 ml @ 100 mls/hr IV Q6H [facility] Rx#:[id number] Oral 0 240 Output: Void Amount 300 Other: Urine Appearance Clear Clear Urine Color Dark Yellow Bright Yellow # Voids 1 Exam: General: Groggy, arouses, answers questions Chest: Unlabored, clear Cardiovascular: Regular Abdomen: Soft Musculoskeletal: Left foot status post BKA with dressings in place. Neuro: Groggy, arouses, answers appropriately Medical - PN: Obj Da - Labs CBC & Chem 7: 06/29/19 04:49 06/29/19 04:49 Labs: Abnormal Lab Results 06/29/19 06/29/19 06/28/19 04:49 04:49 19:14 RBC 3.88 L Hgb 11.6 L Hct 35.0 L Plt Count MPV 6.9 L Sodium Chloride Carbon Dioxide Anion Gap Creatinine 0.5 L Glucose 230 H Hemoglobin A1c Lactate Dehydrogenase 279 H Total Protein Albumin 3.0 L Globulin 3.8 H Albumin/Globulin Ratio 0.8 L Urine Glucose (UA) >=500 A Urine Ketones 5/tr A Urine Occult Blood 0.03 A Urine Nitrate Pos A Ur Leukocyte Esterase 250 A Urine RBC 6 H Urine WBC 52 H Ur Squamous Epith Cells 45 H Urine Bacteria Mod A Hyaline Casts 12 H 06/28/19 06/28/19 06/28/19 18:17 18:17 18:17 RBC Hgb Hct Plt Count 523 H MPV 7.0 L Sodium 130 L Chloride 92 L Carbon Dioxide 20 L Anion Gap 18.0 H Creatinine 0.5 L Glucose 370 H Hemoglobin A1c 10.7 H Lactate Dehydrogenase Total Protein 8.5 H Albumin Globulin 4.6 H Albumin/Globulin Ratio 0.8 L Urine Glucose (UA) Urine Ketones Urine Occult Blood Urine Nitrate Ur Leukocyte Esterase Urine RBC Urine WBC Ur Squamous Epith Cells Urine Bacteria Hyaline Casts Microbiology 06/28/19 18:17 Blood Culture - Preliminary Blood 06/28/19 18:25 Blood Culture - Preliminary Blood 06/28/19 19:12 Gram Stain - Final Foot - Left Wound Culture - Preliminary Staphylococcus aureus 06/29/19 01:15 MRSA (PCR) - Final Nose MRSA PCR positive Meds: Medications Acetaminophen (Tylenol) 650 mg PO Q6HP PRN; Protocol PRN Reason: Per Pain Protocol/Fever > 101 Hydrocodone Bitart/Acetaminophen ([place] 5/325mg) 1 tab PO Q4HP PRN; Protocol PRN Reason: Per Pain Protocol Last Admin: 06/29/19 11:19 Dose: 1 tab Documented by: Cefazolin Sodium (Ancef) 2 gm IV Q8H [facility]; Protocol Last Admin: 06/29/19 14:00 Dose: 2 gm Documented by: Dextrose (Dextrose 50%) 0 ml IV UD PRN PRN Reason: Hypoglycemia Diagnostic Test (Pha) (Accu-Chek) 1 each FS ACHS [facility] Last Admin: 06/29/19 11:45 Dose: 1 each Documented by: Docusate Sodium (Colace) 100 mg PO BID [facility] Last Admin: 06/29/19 09:06 Dose: Not Given Documented by: Gabapentin (Neurontin) 100 mg PO Q12 [facility] Glucose (Insta-Glucose) 15 gm PO PRN PRN PRN Reason: Hypoglycemia Hydromorphone HCl (Dilaudid) 0.5 mg IV Q2HP PRN; Protocol PRN Reason: Per Pain Protocol Last Admin: 06/29/19 18:47 Dose: 0.5 mg Documented by: Sodium Chloride (Sodium Chloride 0.9%) 1,000 mls @ 150 mls/hr IV .Q6H40M [facility] Last Admin: 06/29/19 18:47 Dose: 150 mls/hr Documented by: Vancomycin HCl 1,500 mg/ (Sodium Chloride) 500 mls @ 333.3 mls/hr IV Q12H [facility] Last Admin: 06/29/19 08:58 Dose: 333.3 mls/hr Documented by: Insulin Human Lispro (Humalog) 0 unit SQ ACHS [facility]; Protocol Last Admin: 06/29/19 11:45 Dose: Not Given Documented by: Metformin HCl (Glucophage) 500 mg PO BIDCC [facility] Mupirocin (Bactroban Oint 2%) 1 dose NARES BID [facility] Ondansetron HCl (Zofran) 4 mg IV Q6HP PRN PRN Reason: Nausea And Vomiting Senna (Senokot) 2 tab PO HS [facility] Sodium Chloride (Saline Flush) 10 ml IV Q8 [facility] Last Admin: 06/29/19 14:00 Dose: 10 ml Documented by: Vancomycin HCl (Vancomycin Per Pharmacy) 1 order IV UD [facility]; Protocol Medical - PN: A/P - Narrative A/P Narrative: 49-year-old with type 2 diabetes presenting with left foot infection. Diabetic foot infection with cellulitis and ulcer. Apparently started as a blister on the lateral aspect of the left fourth toe. Now with evidence of bone infection and abscess. Surrounding erythema and edema consistent with cellulitis. Has been ongoing for about 3 weeks. Good palpable dorsalis pedis pulse on that foot. Heavy growth of staph aureus on cultures from ED. Now p ostop status post left TMA Continue vancomycin Begin cefazolin, stop Zosyn Follow-up sensitivities on cultures obtained in the ED Follow-up cultures from surgery ID consultation, discussed with Dr. Valles Type 2 diabetes. Takes metformin and gabapentin at home. Hemoglobin A1c 10.7. Sliding scale insulin for now, consider basal Lantus if needing significant insulin doses Controlled carbohydrate, Accu-Cheks Medical - PN: Qual - VTE Deep Vein Thrombosis/Pulmonary Embolism Present on Admission: No
[2019-06-29] MEDS: GABAPENTIN 100 MG CAPSULE PO SCH (19:29)
[2019-06-29] MEDS: SENNOSIDES 1 TABLET PO SCH (19:29)
[2019-06-29] MEDS: MUPIROCIN OINT 2% 22GM NARES SCH (19:29)
[2019-06-29] MEDS: metFORMIN 500 MG TABLET PO SCH (19:29)
[2019-06-30] MEDS: 0.9 % SODIUM CHLORIDE 1,000 ML IV SCH ×5 (01:24→18:34)
[2019-06-30] MEDS: HYDROmorphone 2 MG/ML VIAL IV PRN (02:32)
[2019-06-30] MEDS: 0.9 % SODIUM CHLORIDE 10 ML SYRINGE IV SCH ×3 (04:21→22:46)
[2019-06-30] MEDS: HYDROcodone/APAP 5/325MG TABLET PO PRN ×4 (05:15→20:07)
[2019-06-30] MEDS: ceFAZolin 1 GM VIAL IV SCH ×2 (05:15→15:41)
[2019-06-30 06:44] LABS: Basophils # (Auto) 0.01 K/mcL (0.00-0.30); Basophils % (Auto) 0.1 % (0.0-2.0); Eosinophils # (Auto) 0 K/mcL (0.00-0.70); Eosinophils % (Auto) 0 % (0.0-7.0); Granulocytes % (Auto) 86.6 % (38.0-78.0); Hematocrit 36.4 % (34.1-44.9); Hemoglobin 11.9 g/dL (11.2-15.7); Lymphocytes # (Auto) 1.01 K/mcL (1.50-4.80); Lymphocytes % (Auto) 11.7 % (15.5-49.0); Mean Cell Volume 88.3 fL (80.0-100.0); Mean Corpuscular HGB Conc 32.7 g/dL (31.0-36.0); Mean Platelet Volume 9.1 fL (7.4-10.4); Monocytes # (Auto) 0.14 K/mcL (0.10-0.90); Monocytes % (Auto) 1.6 % (1.0-12.0); Platelet Count 383 K/mcL (140-440); RBC 4.12 M/mcL (3.59-5.38); Red Cell Distribution Width 11.9 % (11.5-14.5); WBC 8.6 K/mcL (4.50-11.00)
[2019-06-30 06:51] LABS: ALT/SGPT 7 U/l (0-40); AST/SGOT 8 U/l (0-37); Albumin 2.9 gm/dL (3.2-5.2); Albumin/Globulin Ratio 0.8 (1.0-2.3); Alkaline Phosphatase 79 U/L (39-117); Bilirubin,Direct < 0.2 mg/dL (0.0-0.3); Bilirubin,Total 0.2 mg/dL (0.0-1.0); Blood Urea Nitrogen 7 mg/dl (6-20); Calcium 8.5 mg/dl (8.6-10.4); Carbon Dioxide 22 mmol/L (22-30); Chloride 101 mmol/L (96-108); Globulin 3.6 gm/dL (2.2-3.7); Glomerular Filtration Rate 122; Glucose 300 mg/dL (70-105); Lactate Dehydrogenase 125 U/L (94-250); Phosphorous 3.4 mg/dL (2.7-4.5); Triglycerides 113 mg/dl (<150); Uric Acid 2.4 mg/dL (2.5-8.0)
[2019-06-30] MEDS: DOCUSATE SODIUM 100 MG CAPSULE PO SCH ×2 (09:35→20:26)
[2019-06-30] MEDS: metFORMIN 500 MG TABLET PO SCH ×2 (09:35→17:40)
[2019-06-30] MEDS: GABAPENTIN 100 MG CAPSULE PO SCH ×2 (09:36→20:07)
[2019-06-30] MEDS: MUPIROCIN OINT 2% 22GM NARES SCH ×2 (09:36→20:39)
[2019-06-30] MEDS: VANCOMYCIN 1,500 MG in 0.9 % SODIUM CHLORIDE 500 ML IV SCH ×2 (09:46→20:07)
--- NOTE | 2019-06-30 09:50 | Orthopedic Progress Note ---
Subjective Patient information: Note initiated : 06/30/19 at 9:50 am Service Date, if different from initiated Date: [] Patient: Enma Leonard 49 y/o F admitted on 06/29/19 for Left 4th digit infection. She is POD#1 s/p left transmetatarsal amputation with Dr. Gallegos. Her pain is managed this AM. Denies SOB, CP, N/V, abd pain. Chief Complaint: left lower extremity pain. Pertinent ROS: negative except for HPI. Objective Vital signs: Vital Signs Temp Pulse Resp BP Pulse Ox 06/30/19 04:26 97.6 F 58 L 12 90/58 97 06/29/19 23:13 65 87/57 98 06/29/19 22:43 64 16 90/59 99 06/29/19 22:11 69 90/60 98 06/29/19 21:11 70 96/58 98 06/29/19 20:12 80 103/67 98 06/29/19 19:42 75 100/62 06/29/19 19:11 67 101/65 99 06/29/19 18:57 65 114/71 94 06/29/19 18:42 80 107/68 97 06/29/19 18:32 10 L 99 06/29/19 18:27 97.1 F 73 14 102/71 98 06/29/19 18:15 97.2 F 78 17 117/64 99 06/29/19 18:05 82 17 119/66 99 06/29/19 18:00 77 16 115/72 100 06/29/19 17:55 88 16 113/65 94 06/29/19 17:50 88 20 117/95 100 06/29/19 17:45 90 16 102/85 100 06/29/19 17:42 96.7 F L 84 16 121/76 100 06/29/19 13:39 91/59 06/29/19 11:21 97.5 F 68 16 89/53 100 Intake and Output 06/29/19 06/30/19 06/30/19 21:59 05:59 13:59 Intake Total 3220 1240 Output Total 795 1520 Balance 2425 -280 Intake: IV 2600 1000 Sodium Chloride 0.9% 1,000 ml @ 1000 150 mls/hr IV .Q6H40M [facility] Rx#: [id number] Lactated Ringers 1,000 ml @ 2000 Wide Open IV BOLUS ONE Rx#: [id number] Vancomycin 1,500 mg In Sodium 500 Chloride 0.9% 500 ml @ 333.3 mls/hr IV Q12H [facility] Rx#: [id number] Oral 620 240 Output: Drainage 45 20 Left Foot Hemovac 45 20 Void Amount 750 1500 Other: Meal Dinner Percent of Meal Consumed 100% Urine Appearance Clear Urine Color Bright Yellow Urine Odor Normal Weight 166 lb 14.4 oz Intake & Output: Intake & Output 06/29/19 06/30/19 06/30/19 21:59 05:59 13:59 Intake Total 3220 1240 Output Total 795 1520 Balance 2425 -280 Weight 166 lb 14.4 oz Intake: IV 2600 1000 Sodium Chloride 0.9% 1,000 ml @ 1000 150 mls/hr IV .Q6H40M [facility] Rx#: [id number] Lactated Ringers 1,000 ml @ 2000 Wide Open IV [facility] ONE Rx#: [id number] Vancomycin 1,500 mg In Sodium 500 Chloride 0.9% 500 ml @ 333.3 mls/hr IV Q12H [facility] Rx#: [id number] Oral 620 240 Output: Drainage 45 20 Left Foot Hemovac 45 20 Void Amount 750 1500 Other: Meal Dinner Percent of Meal Consumed 100% Urine Appearance Clear Urine Color Bright Yellow Urine Odor Normal Dressing: Yes clean, Yes dry, Yes intact, Yes splint in place Weight bearing status: non (LLE) Neurological exam IM: Yes alert, Yes oriented X3, Yes neurovascular intact Extremities exam IM: No calf tenderness (RLE), Yes normal capillary refill (RLE), Yes normal inspection (RLE), No Christal's sign (RLE), Yes neurovascular intact - Labs CBC & BMP: 06/30/19 05:10 06/30/19 05:10 Labs: 06/30/19 06/29/19 06/28/19 05:10 04:49 18:17 Hgb 11.9 11.6 L 13.4 Hct 36.4 35.0 L 39.9 Assessment and Plan (1) Septic arthritis of interphalangeal joint of toe of left foot Status: Acute - Narrative A/P Narrative: Pt is a 49 yo female POD#1 s/p left transmetatarsal amputation with Dr. Gallegos. --wound/dressing: splint may be removed tomorrow with dressing change and drain pulled at that time. -PT/OT: NWB with LLE in the interim. --continue pain medications. --continue current diet. --prophy: IS, SCD.
[2019-06-30] MEDS: INSULIN LISPRO 1 UNIT/0.01 ML UNIT SQ SCH ×4 (10:34→20:39)
--- NOTE | 2019-06-30 11:47 | General Surgery Consult Note ---
History of Present Illness Patient information: Note initiated : 06/30/19 at 11:42 am Service Date, if different from initiated Date: [] Patient: Enma Leonard 49 y/o F admitted on 06/29/19 for Left 4th digit infection. Chief Complaint: [] Consult date: 06/29/19 Requesting physician: Kalyan Gallegos (Post surgery wound care) History of present illness: I saw this patient along with Camila RN and Jenna Inpatient wound care nurse. This is a 49/F with h/o prior toe amputation and worsening post surgical sepsis. Subsequently, she had undergone a transmetatarsal amputation of her LEFT foot last evening. This morning, the patient is stable,without any systemic or constitution complaints and with NO fever and stable vital signs. Dressing over LEFT foot is CDI. Drain is functioning with minimal serous drainage in canister. Scheduled fot primary change of dressing and drain removal tomorrow. Medications and Allergies Home Medications Medication Instructions Recorded Confirmed Type Gabapentin [Neurontin] 100 mg PO Q12 06/29/19 06/29/19 History metFORMIN HCL [Metformin HCl] 1 tab PO BID 06/29/19 06/29/19 History Allergies Allergy/AdvReac Type Severity Reaction Status Date / Time No Known Drug Allergies Allergy Verified 06/28/19 17:50 Exam Temp Pulse Resp BP Pulse Ox 97.4 F 72 12 84/83 96 06/30/19 08:00 06/30/19 08:00 06/30/19 08:00 06/30/19 08:00 06/30/19 08:00 - General physical appearance well developed, well nourished, no pain - Eyes PERRL, normal ocular movement - ENT normal pinna, normal nares, no congestion - Head Head exam IM: Present: atraumatic, normocephalic - Neck no masses, trachea midline, no venous distension - Cardiovascular Cardiovascular exam IM: Present: normal rate and rhythm - Respiratory normal respiratory effort, clear to auscultation - Abdomen Abdomen: Present: soft, non tender, bowel sounds - Integumentary Present: other (LEFT foot Transmetatarsal surgical incision site, has pitting edema and approxiamted flaps and intact sutures. ) - Neurologic Present: other (Diabetes with peripheral neuropathy. NO gross neurological deficits. Detailed examination not done.) Results - Labs 06/30/19 05:10 07/01/19 06:03 Abnormal lab results 06/30/19 06/30/19 Range/Units 05:10 05:10 Gran % 86.6 H (38.0-78.0) % Lymph % (Auto) 11.7 L (15.5-49.0) % Lymph # (Auto) 1.01 L (1.50-4.80) K/mcL Creatinine 0.4 L (0.6-1.1) mg/dl Glucose 300 H (70-105) mg/dL Uric Acid 2.4 L (2.5-8.0) mg/dL Calcium 8.5 L (8.6-10.4) mg/dl Albumin 2.9 L (3.2-5.2) gm/dL Albumin/Globulin Ratio 0.8 L (1.0-2.3) Diabetes panel 06/30/19 Range/Units 05:10 Sodium 136 (133-145) mmol/L Potassium 4.2 (3.3-5.1) mmol/L Chloride 101 (96-108) mmol/L Carbon Dioxide 22 (22-30) mmol/L BUN 7 (6-20) mg/dl Creatinine 0.4 L (0.6-1.1) mg/dl Glucose 300 H (70-105) mg/dL Calcium 8.5 L (8.6-10.4) mg/dl AST 8 (0-37) U/l ALT 7 (0-40) U/l Alkaline Phosphatase 79 (39-117) U/L Total Protein 6.5 (5.9-8.4) gm/dL Albumin 2.9 L (3.2-5.2) gm/dL Triglycerides 113 (<150) mg/dl Calcium panel 06/30/19 Range/Units 05:10 Calcium 8.5 L (8.6-10.4) mg/dl Phosphorus 3.4 (2.7-4.5) mg/dL Albumin 2.9 L (3.2-5.2) gm/dL Pituitary panel 06/30/19 Range/Units 05:10 Sodium 136 (133-145) mmol/L Potassium 4.2 (3.3-5.1) mmol/L Chloride 101 (96-108) mmol/L Carbon Dioxide 22 (22-30) mmol/L BUN 7 (6-20) mg/dl Creatinine 0.4 L (0.6-1.1) mg/dl Glucose 300 H (70-105) mg/dL Calcium 8.5 L (8.6-10.4) mg/dl Adrenal panel 06/30/19 Range/Units 05:10 Sodium 136 (133-145) mmol/L Potassium 4.2 (3.3-5.1) mmol/L Chloride 101 (96-108) mmol/L Carbon Dioxide 22 (22-30) mmol/L BUN 7 (6-20) mg/dl Creatinine 0.4 L (0.6-1.1) mg/dl Glucose 300 H (70-105) mg/dL Calcium 8.5 L (8.6-10.4) mg/dl Total Bilirubin 0.2 (0.0-1.0) mg/dL AST 8 (0-37) U/l ALT 7 (0-40) U/l Alkaline Phosphatase 79 (39-117) U/L Total Protein 6.5 (5.9-8.4) gm/dL Albumin 2.9 L (3.2-5.2) gm/dL All other labs normal. Assessment and Plan (1) Wound healing, delayed Assessment: Post surgical wound: POD #2 S/P LEFT foot TMA ( For sepsis ) Diabetes with peripheral neuropathy. I saw this patient with Jenna RN, Inpatient wound care nurse. I reviewed intraoperative findings and spoke with Dr. Gallegos. (CHERYL ) Plan: See detailed wound care orders. If and when discharged [facility]u [facility] in one week. Further recommendations as the condition evolves. Status: Acute Priority: Medium
--- NOTE | 2019-06-30 19:10 | Internal Med Progress Note ---
Medical - PN: Subj Patient information: Note initiated : 06/30/19 at 7:08 pm Service Date, if different from initiated Date: [] Patient: Enma Leonard 49 y/o F admitted on 06/29/19 for Left 4th digit infection. Chief Complaint: Follow-up foot infection Interval history: 06/28 Ms. Leonard is a 49 year old F with history of type 2 diabetes and neuropathy, history of left great toe amputation for osteomyelitis who presents to the emergency department with worsening swelling, erythema and pain of her left foot. Patient states that about 3 weeks ago she developed a blister on the lateral aspect of her fourth left toe. It broke, she rapidly developed evidence of infection, erythema, tenderness. She avoided seeking medical attention, instead becoming more sedentary because of inability to ambulate. Pain con tinued to increase over the last few weeks. Today she bumped her foot on an object with worsening pain. That combined with the insistence of her sister led her to seek care in the emergency department. Patient has had low-grade fever into the 99 degree range. She has occasional chills. She has had sporadic nausea and vomiting since her foot became red and painful. Glucoses have generally been running in the 1 20-220 range, though were over 300 at presentation today. She has pain in the foot as noted. There is erythema onto the dorsum of the foot along with edema up to the ankle. In the emergency department, she had obviously red and edematous foot with open wound on the plantar aspect of the fourth toe on the left. White count was not elevated, lactate was normal and she had mild electrolyte abnormalities. She was cultured, received antibiotics, subsequently had CT of the foot which shows worrisome changes for osteomyelitis along with an abscess and possible fracture. Orthopedics has been contacted and will see the patient in the morning. She is being admitted for further treatment of diabetic foot wound with cellulitis and abscess. 06/29 Seen postop after left TMA. She is groggy, complaining of some wound pain. Case discussed with Dr. Valles who has consulted. Wound cultures from the ED with heavy growth of staph aureus. Nasal screening positive for MRSA carriage. 06/30/2019 Patient has complaints this afternoon. Appetite is good. Pain adequately controlled. MRSA has grown on wound culture. - Constitutional Vitals: Vital Signs Temp Pulse Resp BP Pulse Ox 98.1 F 80 12 91/56 97 06/30/19 16:00 06/30/19 16:00 06/30/19 16:00 06/30/19 12:00 06/30/19 16:00 Period Temp Pulse Resp BP Sys/Wang Pulse Ox Last 24 Hr 97.4 F-98.6 F 58-90 12-16 84-103/56-83 96-99 Intake and Output 06/30/19 06/30/19 06/30/19 05:59 13:59 21:59 Intake Total 1240 2260 800 Output Total 1520 1300 Balance -280 960 800 Intake & Output: Intake & Output 06/30/19 06/30/19 06/30/19 05:59 13:59 21:59 Intake Total 1240 2260 800 Output Total 1520 1300 Balance -280 960 800 Intake: IV 1000 1500 Sodium Chloride 0.9% 1,000 ml @ 1000 1000 150 mls/hr IV .Q6H40M [facility] Rx#: [id number] Vancomycin 1,500 mg In Sodium 500 Chloride 0.9% 500 ml @ 333.3 mls/hr IV Q12H [facility] Rx#: [id number] Oral 240 760 800 Output: Drainage 20 Left Foot Hemovac 20 Void Amount 1500 1300 Other: Meal Lunch Percent of Meal Consumed 75% Feeding Ability Independent Stool Size Large Stool Color Brown # Bowel Movements 1 General appearance: no acute distress - Respiratory Respiratory exam: Present: normal respiratory exam - Cardiovascular Cardiovascular exam: Present: normal rate and rhythm - GI/Abdominal GI/Abdominal exam: Present: normal bowel sounds, soft. Absent: tenderness - Extremities Exam Additional comments: Left lower extremity with surgical dressings and drain in place - Neurological Exam Neurological exam: Present: alert, oriented X3 Medical - PN: Obj Da - Labs CBC & Chem 7: 06/30/19 05:10 06/30/19 05:10 Labs: Abnormal Lab Results 06/30/19 06/30/19 06/29/19 05:10 05:10 04:49 RBC Hgb Hct Plt Count MPV Gran % 86.6 H Lymph % (Auto) 11.7 L Lymph # (Auto) 1.01 L Sodium Chloride Carbon Dioxide Anion Gap Creatinine 0.4 L 0.5 L Glucose 300 H 230 H Hemoglobin A1c Uric Acid 2.4 L Calcium 8.5 L Lactate Dehydrogenase 279 H Total Protein Albumin 2.9 L 3.0 L Globulin 3.8 H Albumin/Globulin Ratio 0.8 L 0.8 L Urine Glucose (UA) Urine Ketones Urine Occult Blood Urine Nitrate Ur Leukocyte Esterase Urine RBC Urine WBC Ur Squamous Epith Cells Urine Bacteria Hyaline Casts 06/29/19 06/28/19 06/28/19 04:49 19:14 18:17 RBC 3.88 L Hgb 11.6 L Hct 35.0 L Plt Count MPV 6.9 L Gran % Lymph % (Auto) Lymph # (Auto) Sodium Chloride Carbon Dioxide Anion Gap Creatinine Glucose Hemoglobin A1c 10.7 H Uric Acid Calcium Lactate Dehydrogenase Total Protein Albumin Globulin Albumin/Globulin Ratio Urine Glucose (UA) >=500 A Urine Ketones 5/tr A Urine Occult Blood 0.03 A Urine Nitrate Pos A Ur Leukocyte Esterase 250 A Urine RBC 6 H Urine WBC 52 H Ur Squamous Epith Cells 45 H Urine Bacteria Mod A Hyaline Casts 12 H 06/28/19 06/28/19 18:17 18:17 RBC Hgb Hct Plt Count 523 H MPV 7.0 L Gran % Lymph % (Auto) Lymph # (Auto) Sodium 130 L Chloride 92 L Carbon Dioxide 20 L Anion Gap 18.0 H Creatinine 0.5 L Glucose 370 H Hemoglobin A1c Uric Acid Calcium Lactate Dehydrogenase Total Protein 8.5 H Albumin Globulin 4.6 H Albumin/Globulin Ratio 0.8 L Urine Glucose (UA) Urine Ketones Urine Occult Blood Urine Nitrate Ur Leukocyte Esterase Urine RBC Urine WBC Ur Squamous Epith Cells Urine Bacteria Hyaline Casts Microbiology 06/28/19 18:17 Blood Culture - Preliminary Blood 06/28/19 18:25 Blood Culture - Preliminary Blood 06/28/19 19:12 Gram Stain - Final Foot - Left Wound Culture - Preliminary Methicillin resistant s.aureus 06/29/19 01:15 MRSA (PCR) - Final Nose MRSA PCR positive Meds: Medications Acetaminophen (Tylenol) 650 mg PO Q6HP PRN; Protocol PRN Reason: Per Pain Protocol/Fever > 101 Hydrocodone Bitart/Acetaminophen ([place] 5/325mg) 1 tab PO Q4HP PRN; Protocol PRN Reason: Per Pain Protocol Last Admin: 06/30/19 15:45 Dose: 1 tab Documented by: Cefazolin Sodium (Ancef) 2 gm IV Q8H [facility]; Protocol Last Admin: 06/30/19 15:41 Dose: 2 gm Documented by: Dextrose (Dextrose 50%) 0 ml IV UD PRN PRN Reason: Hypoglycemia Diagnostic Test (Pha) (Accu-Chek) 1 each FS ACHS [facility] Last Admin: 06/30/19 16:44 Dose: 1 each Documented by: Docusate Sodium (Colace) 100 mg PO BID [facility] Last Admin: 06/30/19 09:35 Dose: 100 mg Documented by: Gabapentin (Neurontin) 100 mg PO Q12 [facility] Last Admin: 06/30/19 09:36 Dose: 100 mg Documented by: Glucose (Insta-Glucose) 15 gm PO PRN PRN PRN Reason: Hypoglycemia Hydromorphone HCl (Dilaudid) 0.5 mg IV Q2HP PRN; Protocol PRN Reason: Per Pain Protocol Last Admin: 06/30/19 02:32 Dose: 0.5 mg Documented by: Sodium Chloride (Sodium Chloride 0.9%) 1,000 mls @ 150 mls/hr IV .Q6H40M [facility] Last Admin: 06/30/19 18:34 Dose: 150 mls/hr Documented by: Vancomycin HCl 1,500 mg/ (Sodium Chloride) 500 mls @ 333.3 mls/hr IV Q12H [facility] Last Infusion: 06/30/19 11:17 Dose: Infused Documented by: Insulin Human Lispro (Humalog) 0 unit SQ [facility]; Protocol Last Admin: 06/30/19 17:40 Dose: 6 units Documented by: Metformin HCl (Glucophage) 500 mg PO BIDCC [facility] Last Admin: 06/30/19 17:40 Dose: 500 mg Documented by: Mupirocin (Bactroban Oint 2%) 1 dose NARES BID [facility] Last Admin: 06/30/19 09:36 Dose: 1 dose Documented by: Ondansetron HCl (Zofran) 4 mg IV Q6HP PRN PRN Reason: Nausea And Vomiting Senna (Senokot) 2 tab PO HS [facility] Last Admin: 06/29/19 19:29 Dose: 2 tab Documented by: Sodium Chloride (Saline Flush) 10 ml IV Q8 [facility] Last Admin: 06/30/19 16:13 Dose: Not Given Documented by: Vancomycin HCl (Vancomycin Per Pharmacy) 1 order IV UD [facility]; Protocol Medical - PN: A/P - Narrative A/P Narrative: 49-year-old with type 2 diabetes presenting with left foot infection. Diabetic foot infection with cellulitis and ulcer. Apparently started as a blister on the lateral aspect of the left fourth toe. Now with evidence of bone infection and abscess. Surrounding erythema and edema consistent with cellulitis. Has been ongoing for about 3 weeks. Good palpable dorsalis pedis pulse on that foot. Heavy growth of staph aureus on cultures from ED--> MRSA. Now postop day #1 status post left TMA Continue vancomycin Discontinue cefazolin with MRSA isolated ID consultation Surgical wound care per Ortho Wound care consult, discussed with Dr. Owen Type 2 diabetes. Takes metformin and gabapentin at home. Hemoglobin A1c 10.7. Sliding scale insulin; begin basal Lantus for better control Controlled carbohydrate, Accu-Cheks Medical - PN: Qual - VTE Deep Vein Thrombosis/Pulmonary Embolism Present on Admission: No
[2019-06-30] MEDS: SENNOSIDES 1 TABLET PO SCH (20:26)
[2019-06-30] MEDS: INSULIN GLARGINE, HUMAN 1 UNIT/0.01 ML SQ SCH (20:39)
[2019-07-01] MEDS: 0.9 % SODIUM CHLORIDE 1,000 ML IV SCH ×3 (00:13→13:59)
[2019-07-01] MEDS: HYDROcodone/APAP 5/325MG TABLET PO PRN ×4 (03:33→20:53)
[2019-07-01] MEDS: 0.9 % SODIUM CHLORIDE 10 ML SYRINGE IV SCH ×3 (04:09→20:38)
--- NOTE | 2019-07-01 07:14 | Operative Note ---
DATE OF OPERATION: 06/29/2019 PREOPERATIVE DIAGNOSIS: Septic left forefoot. POSTOPERATIVE DIAGNOSIS: Septic left forefoot. OPERATION: Left transmetatarsal amputation. SURGEON: Kalyan Gallegos MD HOSPICE OFFICE COORDINATOR: Wicho Walden PA-C. This provider's expertise and technical skill were required throughout the case. The PA assisted with preoperative coordination, intraoperative retraction, wound closure, dressing and splint application, as well as postoperative documentation and care coordination. ANESTHESIA: General done by Flora Richards CRNA. TOURNIQUET TIME: About 20 minutes. ESTIMATED BLOOD LOSS: 100 mL SUMMARY OF PROCEDURE: General anesthesia was attained. The left leg was prepped and draped. I checked the patient for an Achilles tendon contracture and there was none under anesthesia. Her forefoot was red and swollen and the fourth toe was tensely swollen with purulence. She is status post a previous disarticulation of the first toe. A fishmouth incision was made around the forefoot above the toes. This was taken down to the dorsal aspect of the 1st through 5th metatarsals. The dorsal flap was elevated. Under C-arm control, I then osteotomized all of the bones from first to fifth in a decrescendo pattern taking more bone as I moved laterally in terms of length of the ray. The forefoot plantar flap was then completed and the forefoot was resected including the sesamoids. I then dissected out all the tendons from both flaps and these were transected. The wound was thoroughly irrigated. The digital arteries were coagulated. The tourniquet was let down and the wound was irrigated again with a total of 3 liters of fluid and then other additional liter of IrriSept. Hemostasis was attained. The wound was then closed after placing a drain. We used 2-0 Monocryl on the subcutaneous tissue and mattress sutures of 3-0 nylon on the skin. A sterile compressive dressing was applied followed by a splint with the ankle in neutral position. The patient awoke without difficulty. She was taken to the recovery room in stable condition. The sponge and needle count was correct. TJF:justice Job ID: [id number] Doc ID: [id number] Kalyan Gallegos MD
[2019-07-01] MEDS: INSULIN LISPRO 1 UNIT/0.01 ML UNIT SQ SCH ×4 (07:29→20:53)
[2019-07-01 07:32] LABS: Blood Urea Nitrogen 6 mg/dl (6-20); Calcium 7.6 mg/dl (8.6-10.4); Carbon Dioxide 23 mmol/L (22-30); Chloride 106 mmol/L (96-108); Glomerular Filtration Rate 122; Glucose 161 mg/dL (70-105)
[2019-07-01] MEDS: HYDROmorphone 2 MG/ML VIAL IV PRN (07:47)
--- NOTE | 2019-07-01 07:56 | Orthopedic Progress Note ---
Subjective Patient information: Note initiated : 07/01/19 at 7:49 am Service Date, if different from initiated Date: [] Patient: Enma Leonard 49 y/o F admitted on 06/29/19 for Left 4th digit infection. Chief Complaint: [] Objective Vital signs: Vital Signs Temp Pulse Resp BP Pulse Ox 07/01/19 03:07 98.1 F 63 20 105/59 98 06/30/19 23:34 98.3 F 67 20 102/60 97 06/30/19 19:53 98.5 F 76 20 90/54 95 06/30/19 16:00 98.1 F 80 12 97 06/30/19 12:00 98.6 F 90 12 91/56 96 06/30/19 08:00 97.4 F 72 12 84/83 96 Intake and Output 06/30/19 07/01/19 07/01/19 21:59 05:59 13:59 Intake Total 1100 1000 Output Total 1165 Balance 1100 -165 Intake: IV 1000 Sodium Chloride 0.9% 1,000 ml @ 1000 150 mls/hr IV .Q6H40M [facility] Rx#: [id number] Oral 1100 0 Output: Drainage 40 Left Foot Hemovac 40 Void Amount 1125 Other: Meal yogurt, cheese stick Percent of Meal Consumed 100% Feeding Ability Independent Urine Appearance Clear Urine Color Pale Stool Size Large Stool Color Brown # Bowel Movements 1 Weight 167 lb 8 oz Intake & Output: Intake & Output 06/30/19 07/01/19 07/01/19 21:59 05:59 13:59 Intake Total 1100 1000 Output Total 1165 Balance 1100 -165 Weight 167 lb 8 oz Intake: IV 1000 Sodium Chloride 0.9% 1,000 ml @ 1000 150 mls/hr IV .Q6H40M [facility] Rx#: [id number] Oral 1100 0 Output: Drainage 40 Left Foot Hemovac 40 Void Amount 1125 Other: Meal yogurt, cheese stick Percent of Meal Consumed 100% Feeding Ability Independent Urine Appearance Clear Urine Color Pale Stool Size Large Stool Color Brown # Bowel Movements 1 Incision: Yes healing Incision clean and dry: Yes Weight bearing status: partial Extremities exam IM: Yes full ROM, Yes joint swelling, Yes Foot pink and warm - Labs CBC & BMP: 06/30/19 05:10 07/01/19 06:03 Labs: 06/30/19 06/29/1919 05:10 04:49 18:17 Hgb 11.9 11.6 L 13.4 Hct 36.4 35.0 L 39.9 Assessment and Plan (1) Abscess of skin or subcutaneous tissue much improved from preop. Recommend IV atb per Dr Valles Wound care consult toassess if hyperbarics needed Status: Acute Qualifiers: Site of cutaneous abscess: extremity Site of cutaneous abscess of extremity: foot Laterality: left Qualified Code(s): L02.612 - Cutaneous abscess of left foot
[2019-07-01] MEDS: LINEZOLID 600 MG TABLET PO SCH ×2 (09:03→20:37)
[2019-07-01] MEDS: DOCUSATE SODIUM 100 MG CAPSULE PO SCH ×2 (09:03→20:37)
[2019-07-01] MEDS: GABAPENTIN 100 MG CAPSULE PO SCH ×2 (09:04→20:37)
[2019-07-01] MEDS: MUPIROCIN OINT 2% 22GM NARES SCH ×2 (09:04→20:37)
[2019-07-01] MEDS: ENOXAPARIN 40 MG/0.4 ML SYRINGE SQ SCH (09:32)
--- NOTE | 2019-07-01 13:09 | Internal Med Progress Note ---
Medical - PN: Subj Patient information: Note initiated : 07/01/19 at 1:05 pm Service Date, if different from initiated Date: [] Patient: Enma Leonard 49 y/o F admitted on 06/29/19 for Left 4th digit infection. Chief Complaint: follow-up left foot osteo- Interval history: 06/28 Ms. Leonard is a 49 year old F with history of type 2 diabetes and neuropathy, history of left great toe amputation for osteomyelitis who presents to the emergency department with worsening swelling, erythema and pain of her left foot. Patient states that about 3 weeks ago she developed a blister on the lateral aspect of her fourth left toe. It broke, she rapidly developed evidence of infection, erythema, tenderness. She avoided seeking medical attention, instead becoming more sedentary because of inability to ambulate. Pain c ontinued to increase over the last few weeks. Today she bumped her foot on an object with worsening pain. That combined with the insistence of her sister led her to seek care in the emergency department. Patient has had low-grade fever into the 99 degree range. She has occasional chills. She has had sporadic nausea and vomiting since her foot became red and painful. Glucoses have generally been running in the 1 20-220 range, though were over 300 at presentation today. She has pain in the foot as noted. There is erythema onto the dorsum of the foot along with edema up to the ankle. In the emergency department, she had obviously red and edematous foot with open wound on the plantar aspect of the fourth toe on the left. White count was not elevated, lactate was normal and she had mild electrolyte abnormalities. She was cultured, received antibiotics, subsequently had CT of the foot which shows worrisome changes for osteomyelitis along with an abscess and possible fracture. Orthopedics has been contacted and will see the patient in the morning. She is being admitted for further treatment of diabetic foot wound with cellulitis and abscess. 06/29 Seen postop after left TMA. She is groggy, complaining of some wound pain. Case discussed with Dr. Valles who has consulted. Wound cultures from the ED with heavy growth of staph aureus. Nasal screening positive for MRSA carriage. 06/30/2019 Patient has complaints this afternoon. Appetite is good. Pain adequately controlled. MRSA has grown on wound culture. 07/01 Patient doing well. Wound undressed and drains removed today. Discussed with Dr. 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 - Constitutional Vitals: Vital Signs Temp Pulse Resp BP Pulse Ox 97.6 F 81 20 110/63 99 07/01/19 08:00 07/01/19 08:00 07/01/19 08:00 07/01/19 08:00 07/01/19 08:00 Period Temp Pulse Resp BP Sys/Wang Pulse Ox Last 24 Hr 97.6 F-98.5 F 63-81 06-18 90-110/54-63 95-99 Intake and Output 06/30/19 07/01/19 07/01/19 21:59 05:59 13:59 Intake Total 1100 1000 1480 Output Total 1165 Balance 1100 -165 1480 Weight 167 lb 8 oz 167 lb 8 oz Patient Weight 07/02/19 05:59 Weight 167 lb 8 oz Intake & Output: Intake & Output 06/30/19 07/01/19 07/01/19 21:59 05:59 13:59 Intake Total 1100 1000 1480 Output Total 1165 Balance 1100 -165 1480 Weight 167 lb 8 oz 167 lb 8 oz Intake: IV 1000 1000 Sodium Chloride 0.9% 1,000 ml @ 1000 1000 150 mls/hr IV .Q6H40M [facility] Rx#: [id number] Oral 1100 0 480 Output: Drainage 40 Left Foot Hemovac 40 Void Amount 1125 Other: Meal yogurt, cheese stick Breakfast Percent of Meal Consumed 100% 100% Feeding Ability Independent Independent Urine Appearance Clear Urine Color Pale Stool Size Large Stool Color Brown # Bowel Movements 1 Exam: General: She is in pretty good spirits. Chest: Clear bilaterally. Respiratory: Regular rate and rhythm. Abdomen: Soft, nontender. Extremities: Left lower extremity, TMA wound is intact. Neuro: Oriented 3 Medical - PN: Obj Da - Labs CBC & Chem 7: 06/30/19 05:10 07/01/19 06:03 Labs: Abnormal Lab Results 07/01/19 06/30/19 06/30/19 06:03 05:10 05:10 RBC Hgb Hct Plt Count MPV Gran % 86.6 H Lymph % (Auto) 11.7 L Lymph # (Auto) 1.01 L Sodium Chloride Carbon Dioxide Anion Gap Creatinine 0.4 L 0.4 L Glucose 161 H 300 H Hemoglobin A1c Uric Acid 2.4 L Calcium 7.6 L 8.5 L Lactate Dehydrogenase Total Protein Albumin 2.9 L Globulin Albumin/Globulin Ratio 0.8 L Urine Glucose (UA) Urine Ketones Urine Occult Blood Urine Nitrate Ur Leukocyte Esterase Urine RBC Urine WBC Ur Squamous Epith Cells Urine Bacteria Hyaline Casts 06/29/19 06/29/19 06/28/19 04:49 04:49 19:14 RBC 3.88 L Hgb 11.6 L Hct 35.0 L Plt Count MPV 6.9 L Gran % Lymph % (Auto) Lymph # (Auto) Sodium Chloride Carbon Dioxide Anion Gap Creatinine 0.5 L Glucose 230 H Hemoglobin A1c Uric Acid Calcium Lactate Dehydrogenase 279 H Total Protein Albumin 3.0 L Globulin 3.8 H Albumin/Globulin Ratio 0.8 L Urine Glucose (UA) >=500 A Urine Ketones 5/tr A Urine Occult Blood 0.03 A Urine Nitrate Pos A Ur Leukocyte Esterase 250 A Urine RBC 6 H Urine WBC 52 H Ur Squamous Epith Cells 45 H Urine Bacteria Mod A Hyaline Casts 12 H 06/28/19 06/28/19 06/28/19 18:17 18:17 18:17 RBC Hgb Hct Plt Count 523 H MPV 7.0 L Gran % Lymph % (Auto) Lymph # (Auto) Sodium 130 L Chloride 92 L Carbon Dioxide 20 L Anion Gap 18.0 H Creatinine 0.5 L Glucose 370 H Hemoglobin A1c 10.7 H Uric Acid Calcium Lactate Dehydrogenase Total Protein 8.5 H Albumin Globulin 4.6 H Albumin/Globulin Ratio 0.8 L Urine Glucose (UA) Urine Ketones Urine Occult Blood Urine Nitrate Ur Leukocyte Esterase Urine RBC Urine WBC Ur Squamous Epith Cells Urine Bacteria Hyaline Casts Microbiology 06/28/19 19:12 Gram Stain - Final Foot - Left Wound Culture - Final Methicillin resistant s.aureus Strep agalactiae - (group b) 06/28/19 18:17 Blood Culture - Preliminary Blood 06/28/19 18:25 Blood Culture - Preliminary Blood 06/29/19 01:15 MRSA (PCR) - Final Nose MRSA PCR positive Meds: Medications Acetaminophen (Tylenol) 650 mg PO Q6HP PRN; Protocol PRN Reason: Per Pain Protocol/Fever > 101 Hydrocodone Bitart/Acetaminophen ([place] 5/325mg) 1 tab PO Q4HP PRN; Protocol PRN Reason: Per Pain Protocol Last Admin: 07/01/19 07:48 Dose: 1 tab Documented by: Dextrose (Dextrose 50%) 0 ml IV UD PRN PRN Reason: Hypoglycemia Diagnostic Test (Pha) (Accu-Chek) [address] [facility] Last Admin: 07/01/19 11:43 Dose: 1 each Documented by: Docusate Sodium (Colace) 100 mg PO BID [facility] Last Admin: 07/01/19 09:03 Dose: 100 mg Documented by: Enoxaparin Sodium (Lovenox) 40 mg SQ DAILY [facility] Last Admin: 07/01/19 09:32 Dose: 40 mg Documented by: Gabapentin (Neurontin) 100 mg PO Q12 [facility] Last Admin: 07/01/19 09:04 Dose: 100 mg Documented by: Glucose (Insta-Glucose) 15 gm PO PRN PRN PRN Reason: Hypoglycemia Hydromorphone HCl (Dilaudid) 0.5 mg IV Q2HP PRN; Protocol PRN Reason: Per Pain Protocol Last Admin: 07/01/19 07:47 Dose: 0.5 mg Documented by: Insulin Glargine (Lantus) 15 unit SQ [facility] Last Admin: 06/30/19 20:39 Dose: 15 units Documented by: Insulin Human Lispro (Humalog) [address] [facility]; Protocol Last Admin: 07/01/19 11:49 Dose: 4 units Documented by: Linezolid (Zyvox) 600 mg PO Q12 [facility]; Protocol Last Admin: 07/01/19 09:03 Dose: 600 mg Documented by: Mupirocin (Bactroban Oint 2%) 1 dose NARES BID [facility] Last Admin: 07/01/19 09:04 Dose: 1 dose Documented by: Ondansetron HCl (Zofran) 4 mg IV Q6HP PRN PRN Reason: Nausea And Vomiting Senna (Senokot) 2 tab PO [facility] Last Admin: 06/30/19 20:26 Dose: Not Given Documented by: Sodium Chloride (Saline Flush) 10 ml IV Q8 [facility] Last Admin: 07/01/19 04:09 Dose: Not Given Documented by: Medical - PN: A/P - Time Spent With Patient Total time spent is greater than 50% in coordination of care (as documented) at patient's floor/unit and/or counseling patient: 25 - 35 minutes - Narrative A/P Narrative: 49-year-old with type 2 diabetes presenting with left foot infection. Diabetic foot infection with cellulitis and ulcer. Apparently started as a blister on the lateral aspect of the left fourth toe. At presentation, with evidence of bone infection and abscess. Surrounding erythema and edema consist ent with cellulitis. Has been ongoing for about 3 weeks. Good palpable dorsalis pedis pulse on that foot. Heavy growth of staph aureus on cultures from ED--> MRSA. Now postop day #2 status post left TMA Discontinue vancomycin Begin Zyvox, long-term antibiotic management per Dr. Valles. Surgical wound care per Ortho Wound care consult, discussed with Dr. Owen Type 2 diabetes. Takes metformin and gabapentin at home. Hemoglobin A1c 10.7. Sliding scale insulin; basal Lantus started for better control Controlled carbohydrate, Accu-Checks Likely stable for discharge tomorrow morning with follow-up with local PCP for further Zyvox prescriptions. Medical - PN: Qual - VTE Deep Vein Thrombosis/Pulmonary Embolism Present on Admission: No
--- NOTE | 2019-07-01 13:18 | Discharge Summary ---
Medical - DS: Prov Patient information: Note initiated : 07/01/19 at 1:16 pm Service Date, if different from initiated Date: [] Patient: Enma Leonard 49 y/o F admitted on 06/29/19 for Left 4th digit infection. Chief Complaint: [] Date of admission: 06/29/19 00:47 Discharge date: 07/02/19 Primary care physician: Glen Parr Consults: 06/28/19 Consult to Physician [CONS] Stat Comment: Consulting Provider: Lion Glaser Reason For Exam: Physician to Consult Consult to Physician [CONS] Stat Comment: Consulting Provider: Leanne Baldwin Reason For Exam: Physician to Consult 06/29/19 11:42 Consult to Infectious Disease [CONS] Routine Comment: Consulting Provider: Levon Valles Reason For Exam: Physician to Consult 07/01/19 07:51 Consult to Physician [CONS] Routine Comment: Consulting Provider: Rafi Owen Reason For Exam: possible flap compromise (in future) Medical - DS: Meds - Discharge Medications Prescriptions: Linezolid 600 mg PO BID 26 Days tab Prescription Printed HYDROcodone/APAP 5/325MG [[place] 5-325Mg] 1 tab PO Q6HP PRN #20 tab PRN Reason: Per Pain Protocol Prescription Printed Active and Home Medications: Home Medications Gabapentin [Neurontin] 100 mg PO Q12 06/29/19 [History Confirmed 06/29/19 Last Taken Unknown] metFORMIN HCL [Metformin HCl] 1 tab PO BID 06/29/19 [History Confirmed 06/29/19 Last Taken Unknown] Medical - DS: Hosp Hospital Course: 06/28 Ms. Leonard is a 49 year old F with history of type 2 diabetes and neuropathy, history of left great toe amputation for osteomyelitis who presents to the emergency department with worsening swelling, erythema and pain of her left foot. Patient states that about 3 weeks ago she developed a blister on the lateral aspect of her fourth left toe. It broke, she rapidly developed evidence of infection, erythema, tenderness. She avoided seeking medical attention, instead becoming more sedentary because of inability to ambulate. Pain continued to increase over the last few weeks. Today she bumped her foot on an object with worsening pain. That combined with the insistence of her sister led her to seek care in the emergency department. Patient has had low-grade fever into the 99 degree range. She has occasional chills. She has had sporadic nausea and vomiting since her foot became red and painful. Glucoses have generally been running in the 1 20-220 range, though were over 300 at presentation today. She has pain in the foot as noted. There is erythema onto the dorsum of the foot along with edema up to the ankle. In the emergency department, she had obviously red and edematous foot with open wound on the plantar aspect of the fourth toe on the left. White count was not elevated, lactate was normal and she had mild electrolyte abnormalities. She was cultured, received antibiotics, subsequently had CT of the foot which shows worrisome changes for osteomyelitis along with an abscess and possible fracture. Orthopedics has been contacted and will see the patient in the morning. She is being admitted for further treatment of diabetic foot wound with cellulitis and abscess. 06/29 Seen postop after left TMA. She is groggy, complaining of some wound pain. Case discussed with Dr. Valles who has consulted. Wound cultures from the ED with heavy growth of staph aureus. Nasal screening positive for MRSA carriage. 06/30/2019 Patient has complaints this afternoon. Appetite is good. Pain adequately controlled. MRSA has grown on wound culture. 07/01 Patient doing well. Wound undressed and drains removed today. Discussed with Dr. 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 07/02 No overnight event or new complaints. Patient stable for discharge Discharge diagnosis: Diabetic foot infection with cellulitis Secondary discharge diagnosis: Diabetes - Time Spent with Patient Total time spent providing and/or coordinating discharge services: Greater than 30 minutes Medical - DS: Exam - Constitutional Vitals: Vital Signs Temp Pulse Resp BP Pulse Ox 07/01/19 08:00 97.6 F 81 20 110/63 99 07/01/19 03:07 98.1 F 63 20 105/59 98 06/30/19 23:34 98.3 F 67 20 102/60 97 06/30/19 19:53 98.5 F 76 20 90/54 95 06/30/19 16:00 98.1 F 80 12 97 Intake and Output 06/30/19 07/01/19 07/01/19 21:59 05:59 13:59 Intake Total 1100 1000 1480 Output Total 1165 Balance 1100 -165 1480 Intake: IV 1000 1000 Sodium Chloride 0.9% 1,000 ml @ 1000 1000 150 mls/hr IV .Q6H40M [facility] Rx#: [id number] Oral 1100 0 480 Output: Drainage 40 Left Foot Hemovac 40 Void Amount 1125 Other: Meal yogurt, cheese stick Breakfast Percent of Meal Consumed 100% 100% Feeding Ability Independent Independent Urine Appearance Clear Urine Color Pale Stool Size Large Stool Color Brown # Bowel Movements 1 Weight 75.977 kg 75.977 kg Patient Weight 07/02/19 05:59 Weight 75.977 kg Medical - DS: Data Labs on day of discharge: Labs from last 24 hours 07/01/19 06:03 Sodium 138 Potassium 3.3 Chloride 106 Carbon Dioxide 23 Anion Gap 9.0 BUN 6 Creatinine 0.4 L GFR Calculation 122 Glucose 161 H Calcium 7.6 L Preliminary micro results at discharge 06/28/19 18:17 Blood Culture - Preliminary Blood 06/28/19 18:25 Blood Culture - Preliminary Blood Medical - DS: A/P - Patient/Caregiver Discharge Instructions Activity: as per physical therapy Diet: Consistent Carbohydrate Additional Instructions: Follow up with in service educator after discharge. You will need to get a weekly CBC lab test, please start on FridayJul.05. Please take the lab slip with you to the first lab draw. You will need to get a CRP and ESR lab tests done every other week, please start FridayJul.05. Please take the lab slip with you to the first lab draw. No weight bearing with left foot/leg. Continue with a consistent carbohydrate diet as tolerated. Prescriptions: Linezolid 600 mg PO BID 26 Days tab Prescription Printed HYDROcodone/APAP 5/325MG [[place] 5-325Mg] 1 tab PO Q6HP PRN #20 tab PRN Reason: Per Pain Protocol Prescription Printed Other Amb Orders: C-Reactive Protein Time Frame: 4 Weeks, Location: None Selected Complete Blood Count Time Frame: 4 Weeks, Location: None Selected Erythrocyte Sedimentation Rate Time Frame: 4 Weeks, Location: None Selected - Follow up Plan Follow up with: Levon Valles MD [Physician] - 07/14/19 4:00 pm Rafi Owen MD [Physician] - (Follow up at wound healing center Friday or Friday, 07/06 or 07/07, clinic will call you to make appt.) Ambrose Zendejas PA-C [Physician Paperhanger Assistant] - 07/05/19 12:30 pm Wood Cano DO [Referring] - 07/02/19 2:30 pm (This appointment is at [facility] ([phone])) Disposition: Home, Self-Care Care Plan Goals: This discharge packet is provided to you to help keep you informed about your care. We want to ensure you get everything you need when you go home. You will also be receiving a call from us in a few days to follow up with you and see how you are doing since your discharge. This gives us a chance to listen to any concerns you maybe experiencing since you were discharged or any additional needs you may have, as well as providing us feedback on your care experience. We strive to always provide excellent care and thank you for your feedback and for choosing [facility]. Prognosis: Fair Rehab Potential: Fair Overall status at discharge: patient is progressing back to baseline Medical - DS: Qual - VTE Deep Vein Thrombosis/Pulmonary Embolism Present on Admission: No
--- NOTE | 2019-07-01 14:54 | Infectious Disease Prog Note ---
Subjective Patient information: Note initiated : 07/01/19 at 2:39 pm Service Date, if different from initiated Date: [] Patient: Enma Leonard 49 y/o F admitted on 06/29/19 for Left 4th digit infection. Chief Complaint: [] Interval history: Pt is doing fine. Reports feeling better after the surgery. Endorses some pain in lower left leg. Denies any fever, chills, n/v, diarrhea. Discussed plans to do PO Linezolid for 4 weeks, and f/u in ID clinic in 2 weeks. Shared potential side effects with Linezolid, including changes in vision, need for lab monitoring for platelet count. Objective Objective Narrative: ao x 3, in nad no thrush chest has VBS b/l s1 s2 normal bs ++ nttd Lt foot stump covered in dressing - Vital Signs Vital signs: Vital Signs Temp Pulse Resp BP Pulse Ox 07/01/19 12:00 36.6 C 75 20 106/67 98 07/01/19 08:00 36.4 C 81 20 110/63 99 07/01/19 03:07 36.7 C 63 20 105/59 98 06/30/19 23:34 36.8 C 67 20 102/60 97 06/30/19 19:53 36.9 C 76 20 90/54 95 06/30/19 16:00 36.7 C 80 12 97 Intake and Output 07/01/19 07/01/19 07/01/19 05:59 13:59 21:59 Intake Total 1000 1480 1230 Output Total 1165 1900 Balance -165 1480 -670 Intake: IV 1000 1000 Sodium Chloride 0.9% 1,000 ml @ 1000 1000 150 mls/hr IV .Q6H40M [facility] Rx#: [id number] Oral 0 480 1230 Output: Drainage 40 Left Foot Hemovac 40 Void Amount 1125 1900 Other: Meal Breakfast Lunch Percent of Meal Consumed 100% 100% Feeding Ability Independent Urine Appearance Clear Urine Color Pale Weight 75.977 kg Patient Weight 07/02/19 05:59 Weight 75.977 kg Intake & Output: Intake & Output 07/01/19 07/01/19 07/01/19 05:59 13:59 21:59 Intake Total 1000 1480 1230 Output Total 1165 1900 Balance -165 1480 -670 Weight 75.977 kg Intake: IV 1000 1000 Sodium Chloride 0.9% 1,000 ml @ 1000 1000 150 mls/hr IV .Q6H40M [facility] Rx#: [id number] Oral 0 480 1230 Output: Drainage 40 Left Foot Hemovac 40 Void Amount 9734 0680 Other: Meal Breakfast Lunch Percent of Meal Consumed 100% 100% Feeding Ability Independent Urine Appearance Clear Urine Color Pale - Lab 06/30/19 05:10 07/01/19 06:03 Most recent lab results Calcium 7.6 mg/dl (8.6-10.4) L 07/01/19 06:03 Phosphorus 3.4 mg/dL (2.7-4.5) 06/30/19 05:10 Magnesium 1.8 mg/dL (1.6-2.5) 06/30/19 05:10 Microbiology 06/28/19 19:12 Foot - Left Gram Stain - Final 06/28/19 19:12 Foot - Left Wound Culture - Final Methicillin resistant s.aureus Strep agalactiae - (group b) 06/28/19 18:17 Blood Blood Culture - Preliminary 06/28/19 18:25 Blood Blood Culture - Preliminary 06/29/19 01:15 Nose MRSA (PCR) - Final MRSA PCR positive Medications Active Medications: Acetaminophen (Tylenol) 650 mg PO Q6HP PRN; Protocol PRN Reason: Per Pain Protocol/Fever > 101 Hydrocodone Bitart/Acetaminophen ([place] 5/325mg) 1 tab PO Q4HP PRN; Protocol PRN Reason: Per Pain Protocol Last Admin: 07/01/19 07:48 Dose: 1 tab Documented by: Admin: 07/01/19 03:33 Dose: 1 tab Documented by: Admin: 06/30/19 20:07 Dose: 1 tab Documented by: Admin: 06/30/19 15:45 Dose: 1 tab Documented by: Admin: 06/30/19 10:33 Dose: 1 tab Documented by: Admin: 06/30/19 05:15 Dose: 1 tab Documented by: Admin: 06/29/19 23:58 Dose: 1 tab Documented by: Admin: 06/29/19 19:28 Dose: 1 tab Documented by: Admin: 06/29/19 11:19 Dose: 1 tab Documented by: Admin: 06/29/19 07:41 Dose: 1 tab Documented by: Admin: 06/29/19 01:44 Dose: 1 tab Documented by: MOHAN Dextrose (Dextrose 50%) 0 ml IV UD PRN PRN Reason: Hypoglycemia Diagnostic Test (Pha) (Accu-Chek) 1 each FS ACHS [facility] Last Admin: 07/01/19 11:43 Dose: 1 each Documented by: Admin: 07/01/19 07:28 Dose: 1 each Documented by: Admin: 06/30/19 20:26 Dose: 1 each Documented by: Admin: 06/30/19 16:44 Dose: 1 each Documented by: Admin: 06/30/19 12:04 Dose: 1 each Documented by: Admin: 06/30/19 09:35 Dose: 1 each Documented by: Admin: 06/29/19 19:18 Dose: 1 each Documented by: Admin: 06/29/19 19:17 Dose: Not Given Documented by: MOHAN Non-Admin Reason: surg Admin: 06/29/19 11:45 Dose: 1 each Documented by: Admin: 06/29/19 07:01 Dose: 1 each Documented by: ROCHELLE Docusate Sodium (Colace) 100 mg PO BID [facility] Last Admin: 07/01/19 09:03 Dose: 100 mg Documented by: Admin: 06/30/19 20:26 Dose: Not Given Documented by: NEHA Non-Admin Reason: Patient Refused Admin: 06/30/19 09:35 Dose: 100 mg Documented by: Admin: 06/29/19 19:29 Dose: 100 mg Documented by: Admin: 06/29/19 09:06 Dose: Not Given Documented by: ROCHELLE Non-Admin Reason: NPO Enoxaparin Sodium (Lovenox) 40 mg SQ DAILY [facility] Last Admin: 07/01/19 09:32 Dose: 40 mg Documented by: MANJULA Gabapentin (Neurontin) 100 mg PO Q12 [facility] Last Admin: 07/01/19 09:04 Dose: 100 mg Documented by: Admin: 06/30/19 20:07 Dose: 100 mg Documented by: Admin: 06/30/19 09:36 Dose: 100 mg Documented by: Admin: 06/29/19 19:29 Dose: 100 mg Documented by: MOHAN Glucose (Insta-Glucose) 15 gm PO PRN PRN PRN Reason: Hypoglycemia Hydromorphone HCl (Dilaudid) 0.5 mg IV Q2HP PRN; Protocol PRN Reason: Per Pain Protocol Last Admin: 07/01/19 07:47 Dose: 0.5 mg Documented by: Admin: 06/30/19 02:32 Dose: 0.5 mg Documented by: Admin: 06/29/19 18:47 Dose: 0.5 mg Documented by: Admin: 06/29/19 11:18 Dose: 0.5 mg Documented by: Admin: 06/29/19 07:40 Dose: 0.5 mg Documented by: ROCHELLE Insulin Glargine (Lantus) 15 unit SQ [facility] Last Admin: 06/30/19 20:39 Dose: 15 units Documented by: NEHA Insulin Human Lispro (Humalog) 0 unit SQ [facility]; Protocol Last Admin: 07/01/19 11:49 Dose: 4 units Documented by: Admin: 07/01/19 07:29 Dose: Not Given Documented by: MANJULA Non-Admin Reason: No Coverage Needed Admin: 06/30/19 20:39 Dose: 4 units Documented by: Admin: 06/30/19 17:40 Dose: 6 units Documented by: Admin: 06/30/19 15:29 Dose: 6 units Documented by: Admin: 06/30/19 10:34 Dose: 12 units Documented by: Admin: 06/29/19 19:18 Dose: 6 units Documented by: Admin: 06/29/19 19:17 Dose: Not Given Documented by: MOHAN Non-Admin Reason: surg Admin: 06/29/19 11:45 Dose: Not Given Documented by: ROCHELLE Non-Admin Reason: No Coverage Needed Admin: 06/29/19 07:41 Dose: 4 units Documented by: ROCHELLE Linezolid (Zyvox) 600 mg PO Q12 [facility]; Protocol Last Admin: 07/01/19 09:03 Dose: 600 mg Documented by: MANJULA Mupirocin (Bactroban Oint 2%) 1 dose NARES BID [facility] Last Admin: 07/01/19 09:04 Dose: 1 dose Documented by: Admin: 06/30/19 20:39 Dose: 1 dose Documented by: Admin: 06/30/19 09:36 Dose: 1 dose Documented by: Admin: 06/29/19 19:29 Dose: 1 dose Documented by: MOHAN Ondansetron HCl (Zofran) 4 mg IV Q6HP PRN PRN Reason: Nausea And Vomiting Senna (Senokot) 2 tab PO HS [facility] Last Admin: 06/30/19 20:26 Dose: Not Given Documented by: NEHA Non-Admin Reason: Patient Refused Admin: 06/29/19 19:29 Dose: 2 tab Documented by: MOHAN Sodium Chloride (Saline Flush) 10 ml IV Q8 [facility] Last Admin: 07/01/19 13:56 Dose: Not Given Documented by: MANJULA Non-Admin Reason: Continuous IV Admin: 07/01/19 04:09 Dose: Not Given Documented by: NEHA Non-Admin Reason: Bag Still Infusing Admin: 06/30/19 22:46 Dose: Not Given Documented by: NEHA Non-Admin Reason: Bag Still Infusing Admin: 06/30/19 16:13 Dose: Not Given Documented by: MUNA Non-Admin Reason: Continuous IV Admin: 06/30/19 04:21 Dose: Not Given Documented by: MOHAN Non-Admin Reason: Continuous IV Admin: 06/29/19 20:21 Dose: Not Given Documented by: MOHAN Non-Admin Reason: Continuous IV Admin: 06/29/19 14:00 Dose: 10 ml Documented by: Admin: 06/29/19 04:05 Dose: Not Given Documented by: MOHAN Non-Admin Reason: Continuous IV Assessment and Plan - Narrative A/P Narrative: A: 1. 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 MRSA carrier: on decolonization protocol Recommendations: -Stop IV Vanc and IV Cefazolin - Start PO Linezolid 600 mg bid with tentative stop date of 07/27/19. - Follow up labs: CBC weekly, ESR and CRP every other week - continue MRSA decolonization with: 2% mupirocin intranasally bid x 5 days and once daily 2% CHG wipes (per hospital protocol) all over body below neck x 5 days, today day 3/5 - aggressive blood sugar control (target <180 mg/dl) - no PICC line needed - pt counseled about smoking cessation, blood sugar control will follow in ID clinic on 07/14/19 Levon Valles MD Infectious diseases
[2019-07-01] MEDS: SENNOSIDES 1 TABLET PO SCH (20:37)
[2019-07-01] MEDS: INSULIN GLARGINE, HUMAN 1 UNIT/0.01 ML SQ SCH (20:53)
[2019-07-02] MEDS: HYDROcodone/APAP 5/325MG TABLET PO PRN (05:29)
[2019-07-02] MEDS: 0.9 % SODIUM CHLORIDE 10 ML SYRINGE IV SCH (05:35)
[2019-07-02] MEDS: INSULIN LISPRO 1 UNIT/0.01 ML UNIT SQ SCH ×2 (06:56→11:48)
[2019-07-02] MEDS: DOCUSATE SODIUM 100 MG CAPSULE PO SCH (09:17)
[2019-07-02] MEDS: GABAPENTIN 100 MG CAPSULE PO SCH (09:17)
[2019-07-02] MEDS: ENOXAPARIN 40 MG/0.4 ML SYRINGE SQ SCH (09:17)
[2019-07-02] MEDS: MUPIROCIN OINT 2% 22GM NARES SCH (09:17)
[2019-07-02] MEDS: LINEZOLID 600 MG TABLET PO SCH (09:17)
--- NOTE | 2019-07-02 13:35 | Surgical Pathology Report ---
HISTOLOGY SPECIMEN MICROSCOPIC DIAGNOSIS LEFT FOREFOOT, AMPUTATION: -- ACUTE OSTEOMYELITIS. -- ULCERATED SKIN WITH DEEP SOFT TISSUE DENSE MIXED ACUTE AND CHRONIC INFLAMMATION AND GRANULATION TISSUE INVOLVING SOFT TISSUE MARGIN. -- BONY MARGIN NEGATIVE FOR ACUTE OSTEOMYELITIS. (EBD:sln) PROCEDURAL IMPRESSION Left septic fourth toe. GROSS DESCRIPTION Received in formalin labeled left septic forefoot, is a left forefoot transected at the mid metatarsals. The left forefoot is noteable for previously amputated great toe. The left fourth toe is edematous and shows a medially located ulcer that measures 1.7 x 1.5 cm. The left fourth toe is associated with skin sloughing on the plantar aspect and extending to the plantar aspect of the foot. The skin and remaining toes are unremarkable. The toenails are yellow and thickened. Electrical Equipment Technician sections submitted: A1 - margin, skin and soft tissue with closest approximation to ulcer; A2-A3 - cross section of fourth toe (A2 distal, A3 proximal); A4 - financial service representative bony margin, following decalcification. (EBD:adj) Electronically Signed by: Jodee Sharp M.D.
== END 2019-07-02 13:05 | disposition home or self-care (01) | DRG 617 ==
LOC: ED 17:49 → MEDSUR 06-29 00:47
PROVIDERS: ADMIT Internal Medicine; ATTEND Internal Medicine